=== PATIENT | female | born 1980 | race Caucasian/White ===

== ENCOUNTER → 2022-02-04 12:05 | Outpatient (CLI) | payer BC, SELFPAY ==
--- NOTE | ~2022-02-04 | MM_ITS ---
EXAMINATION: MM scrn maryam implant BI w roslyn HISTORY: Screening mammogram TECHNIQUE: Craniocaudal and mediolateral oblique 3-D tomosynthesis images with implant displacement a nd synthetic 2-D images were generated. Craniocaudal and mediolateral oblique views of the breasts wi thout implant displacement were obtained using full field digital mammography. CAD analysis was submi tted and interpreted. COMPARISON: No prior mammogram is available for comparison at this institution. BREAST PARENCHYMAL COMPOSITION: There are scattered areas of fibroglandular density. FINDINGS: There are bilateral subglandular silicone implants. There are asymmetries in the upper oute r quadrant of the left breast. No mammographic evidence for malignancy in the right breast. IMPRESSION: 1. Left breast asymmetries, upper outer quadrant. 2. Comparison outside mammograms recommended to assess stability. BI-RADS Category 0: Incomplete: Needs additional imaging evaluation. Reviewed, dictated and finalized at location A. MOLOGY PROFESSOR
== END ==
PROVIDERS: Visit Provider Nurse Practitioner
DX: Z12.31 Encounter for screening mammogram for malignant neoplasm of breast (principal); R92.8 Other abnormal and inconclusive findings on diagnostic imaging of breast
CPT/HCPCS: 77063; 77067

== ENCOUNTER → 2022-03-11 08:27 | Outpatient (CLI) | payer BC, SELFPAY ==
--- NOTE | ~2022-03-11 | MMUS_ITS ---
EXAMINATION: MM diag maryam implant LT w roslyn, US breast LT limited HISTORY: Follow-up focal asymmetry of the left breast TECHNIQUE: Additional 3-D tomosynthesis images of the left breast were performed and synthetic 2-D im ages were generated. CAD analysis was submitted and interpreted. High resolution Limited left breast ultrasound was performed. COMPARISON: Comparison to multiple prior studies sequentially, with oldest reviewed study dated 02/04. BREAST PARENCHYMAL COMPOSITION: Breast composed of scattered areas of fibroglandular density FINDINGS: MAMMOGRAPHIC FINDINGS:There is a focal mass in the lateral aspect of the left breast anteriorly, defi nitely seen on CC view only. ULTRASOUND: Limited left breast ultrasound: At 3:00 near the areola there is an oval hypoechoic mass with low lev el internal echoes and internal septation, most likely a complicated cyst. There is enhanced through transmission, parallel orientation and no internal vascularity. IMPRESSION: 1. Probable benign complicated cyst of the left breast at 3:00 corresponding to the mass seen on mamm ography. 2. Recommend 6 month follow-up diagnostic left mammogram and limited ultrasound BI-RADS category 3, probably benign findings. Reviewed, dictated and finalized at location A. IMPRESSION: 1. Probable benign complicated cyst of the left breast at 3:00 corresponding to the mass seen on mammography. 2. Recommend 6 month follow-up diagnostic left mammogram and limited ultrasound BI-RADS category 3, probably benign findings.
== END ==
PROVIDERS: Visit Provider Obstetrics & Gynecology Gynecology
DX: N63.25 Unspecified lump in the left breast, overlapping quadrants (principal); R92.8 Other abnormal and inconclusive findings on diagnostic imaging of breast
CPT/HCPCS: 76642; 77061; 77065; G0279

== ENCOUNTER → 2022-09-12 13:53 | Outpatient (CLI) | payer BC, SELFPAY ==
--- NOTE | ~2022-09-12 | MMUS_ITS ---
EXAMINATION: MM diag maryam implant LT w roslyn, US breast LT limited HISTORY: Follow-up left breast mass TECHNIQUE: Additional 3-D tomosynthesis images of the left breast were performed and synthetic 2-D im ages were generated. CAD analysis was submitted and interpreted. High resolution Limited left breast ultrasound was performed. COMPARISON: Comparison to multiple prior studies sequentially, with oldest reviewed study dated 03/20. BREAST PARENCHYMAL COMPOSITION: Breast composed of scattered areas of fibroglandular density. FINDINGS: MAMMOGRAPHIC FINDINGS: There is a subglandular silicone implant. There are no suspicious masses, calcifications or performance test architect ural distortion in the left breast to suggest malignancy. ULTRASOUND: Limited left breast ultrasound: At 3:00 near the area were there is an oval hypoechoic mass with inte rnal septation measuring 6 x 4 x 5 mm, unchanged from prior examination allowing for differences of t echnique. IMPRESSION: 1. Stable hypoechoic left breast mass at 3:00 near the areola measuring 6 mm, most likely benign cyst or intramammary lymph node. 2. Six-month follow-up diagnostic bilateral mammogram and Limited left breast ultrasound recommended. BI-RADS category 3, probably benign findings. Reviewed, dictated and finalized at location A. IMPRESSION: 1. Stable hypoechoic left breast mass at 3:00 near the areola measuring 6 mm, m ost likely benign cyst or intramammary lymph node. 2. Six-month follow-up diagnostic bilateral mammogram and Limited left breast u ltrasound recommended. BI-RADS category 3, probably benign findings.
== END ==
PROVIDERS: PCP Physician Assistant; Visit Provider Obstetrics & Gynecology Gynecology
DX: N63.20 Unspecified lump in the left breast, unspecified quadrant (principal)
CPT/HCPCS: 76642; 77061; 77065; G0279

== ENCOUNTER 2022-09-28 09:03 | Outpatient (CLI) | payer BC, SELFPAY ==
[2022-09-29 11:07] LABS: Kit Draw Collected
== END 2022-09-28 09:04 | disposition home or self-care (01) ==
LOC: ANHGOSHLAB 09:07
PROVIDERS: PCP Physician Assistant; Visit Provider Physician Assistant
DX: E03.9 Hypothyroidism, unspecified (principal); Z13.220 Encounter for screening for lipoid disorders; Z13.1 Encounter for screening for diabetes mellitus; Z79.899 Other long term (current) drug therapy; R20.2 Paresthesia of skin; Z53.8 Procedure and treatment not carried out for other reasons
CPT/HCPCS: 99199; 36415

== ENCOUNTER → 2023-03-20 09:21 | Outpatient (CLI) | payer BC, SELFPAY ==
--- NOTE | ~2023-03-20 | MMUS_ITS ---
EXAMINATION: MM diag maryam implant BI w roslyn, US breast LT limited HISTORY: Six-month follow-up of probably benign stable hypoechoic left breast 6 mm mass at 3:00 near the areola TECHNIQUE: Bilateral full Field ML, MLO and CC and left spot 3-D tomosynthesis images were performed and synthetic 2-D images were generated. CAD analysis was submitted and interpreted. High resolution targeted left breast 3:00 breast ultrasound was performed. COMPARISON: 09/12/2022 diagnostic left mammogram and limited left breast ultrasound March 11, 2022 diagnostic left mammogram and limited left breast ultrasound 02/04/2022 bilateral implant screening mammogram BREAST PARENCHYMAL COMPOSITION: There are scattered areas of fibroglandular density. FINDINGS: MAMMOGRAPHIC FINDINGS: No suspicious mass or architectural distortion, malignant calcification, skin thickening or retractio n or significant new or developing density is detected. ULTRASOUND: The 3:00 periareolar mass is irregular in outline, measuring up to 4 x 4.6 x 8.1 mm, compared to the approximate 4 x 5.9 x 4.6 mm dimension on 09/12/2022. IMPRESSION: 1. Irregular mildly enlarged hypoechoic mass at left 3:00 periareolar area 2. Ultrasound-guided biopsy of left breast 3:00 periareolar lesion is recommended due to the irregula r margins and mildly increased size BI-RADS category 4, suspicious findings. Dr. Mckinney telephoned the report and ultrasound-guided biopsy recommendation of the left breast 3:00 pe riareolar lesion on 03/20/2023 at 1052 hours to voicemail at [phone]. Reviewed, dictated and finalized at location A. IMPRESSION: 1. Irregular mildly enlarged hypoechoic mass at left 3:00 periareolar area 2. Ultrasound-guided biopsy of left breast 3:00 periareolar lesion is recommend ed due to the irregular margins and mildly increased size BI-RADS category 4, suspicious findings. Dr. Mckinney telephoned the report and ultrasound-guided biopsy recommendation of t he left breast 3:00 periareolar lesion on 03/20/2023 at 1052 hours to voicemail at [phone]. IMPRESSION: 1. Irregular mildly enlarged hypoechoic mass at left 3:00 periareolar area 2. Ultrasound-guided biopsy of left breast 3:00 periareolar lesion is recommend ed due to the irregular margins and mildly increased size BI-RADS category 4, suspicious findings. Dr. Mckinney telephoned the report and ultrasound-guided biopsy recommendation of t he left breast 3:00 periareolar lesion on 03/20/2023 at 1052 hours to voicemail at [phone].
== END ==
PROVIDERS: PCP Physician Assistant; Visit Provider Obstetrics & Gynecology Gynecology
DX: N63.20 Unspecified lump in the left breast, unspecified quadrant (principal); R92.8 Other abnormal and inconclusive findings on diagnostic imaging of breast
CPT/HCPCS: 76642; 77062; 77066; G0279

== ENCOUNTER 2024-05-28 12:45 | Outpatient (CLI) | payer BC, SELFPAY ==
--- NOTE | ~2024-05-28 | XR_ITS ---
EXAMINATION: XR shoulder LT min 2V DATE: 05/28/2024 12:55 INDICATION: Left shoulder pain. TECHNIQUE: 4 views of left shoulder were obtained. COMPARISON: Left shoulder radiographs 05/31/2019 FINDINGS: Bone alignment is normal. No fracture. Joint spaces are normal. IMPRESSION: 1. Normal left shoulder. Reviewed, dictated and finalized at location A. IMPRESSION: 1. Normal left shoulder.
--- NOTE | ~2024-05-28 | XR_ITS ---
EXAMINATION: XR shoulder RT min 2V DATE: 05/28/2024 12:53 INDICATION: Right shoulder pain. TECHNIQUE: 4 views of right shoulder were obtained. COMPARISON: None. FINDINGS: Bone alignment is normal. No fracture. Joint spaces are normal. IMPRESSION: 1. Normal right shoulder. Reviewed, dictated and finalized at location A. IMPRESSION: 1. Normal right shoulder.
== END 2024-05-28 12:46 ==
PROVIDERS: PCP Physician Assistant; Visit Provider Physician Assistant
DX: M25.511 Pain in right shoulder (principal); M25.512 Pain in left shoulder
CPT/HCPCS: 73030

== ENCOUNTER 2025-07-11 06:30 | Emergency (ER) | payer BC, SELFPAY ==
--- NOTE | ~2025-07-11 | US_ITS ---
EXAMINATION: US abdomen limited DATE: 07/11/2025 08:31 INDICATION: Right upper quadrant abdominal pain and epigastric pain TECHNIQUE: Multiple grayscale and Doppler ultrasound images of the abdomen were obtained. COMPARISON: None FINDINGS: The pancreatic head and body are normal in appearance. The pancreatic tail is not visualized. Visual ized proximal to mid abdominal aorta and the proximal inferior vena cava are normal. Liver has normal echogenicity and contour, with a smooth surface. No liver lesion identified. No intrahepatic biliary duct dilation suspected. Portal venous flow was seen in the hepatopetal, normal direction and has no rmal Doppler waveform. There are multiple echogenic and shadowing gallstones in the normal-appearing gallbladder which is normal in size with no wall thickening or pericholecystic fluid to suggest acute cholecystitis. The common bile duct measures 6 mm, which is at the upper limits of normal. Distal co mmon bile duct is not visualized. Right kidney measures 10.2 x 4.6 x 5.3 cm with normal contour and p arenchymal echogenicity and no hydronephrosis. Sonographic [place] sign was reported as negative by [facility] bowling ball patcher. IMPRESSION: 1. Cholelithiasis with borderline dilated common bile duct but no intrahepatic biliary ductal dilatio n or findings of acute cholecystitis. Correlate with liver function tests and if clinically indicated could consider MRCP for further evaluation. Reviewed, dictated and finalized at location A. IMPRESSION: 1. Cholelithiasis with borderline dilated common bile duct but no intrahepatic biliary ductal dilation or findings of acute cholecystitis. Correlate with live r function tests and if clinically indicated could consider MRCP for further ev aluation.
--- NOTE | ~2025-07-11 | XR_ITS ---
EXAMINATION: XR chest 2V 07/11/2025 07:03 INDICATION: Chest pain PROCEDURE: 2 view chest COMPARISON: 03/24/2016 FINDINGS: The lungs are clear. The cardiomediastinal silhouette is within normal limits. There are no pleural effusions. There is no pneumothorax suspected. IMPRESSION: 1: NO ACUTE CARDIOPULMONARY DISEASE. Reviewed, dictated and finalized at location A.
--- OUTSIDE RECORDS SUMMARY | 2025-07-11 06:32 | XMS_ITS | Clinical Summary ---
Author Organization [facility] Address [address] [place] [address] Phone Care Team Providers Care Mandarin Chinese Teacher Name Role Phone Unavailable Primary Care Provider Unavailabl e Allergies No known active allergies Medications No known medications Encounters Date Type Department Care Team Description 07/01/2025 External Device Data [facility] ABSTRACTION Provider, Abstract 06/11/2025 External Device Data [facility] ABSTRACTION Provider, Abstract 06/10/2025 External Device Data [facility] ABSTRACTION Provider, Abstract 05/13/2025 External Device Data [facility] ABSTRACTION Provider, Abstract 04/29/2025 External Device Data [facility] ABSTRACTION Provider, Abstract 04/17/2025 External Device Data [facility] ABSTRACTION Provider, Abstract 04/16/2025 External Device Data [facility] ABSTRACTION Provider, Abstract 04/15/2025 External Device Data [facility] ABSTRACTION Provider, Abstract from Last 3 Months Social History Tobacco Use Types Packs/Day Years Used Date Smoking Tobacco: Never Assessed Comments No Sex and Gender Information Value Date Recorded Sex Assigned at Not on file Legal Sex Female 10:22 AM CDT Gender Identity Not on file Sexual Orientation Not on file Last Filed Vital Signs Vital Sign Reading Time Taken Comments Blood Pressure - - Pulse - - Temperature - - Respiratory Rate - - Oxygen Saturation - - Inhaled Oxygen Concentration - - Weight 72.6 kg (160 lb) 04/14/2023 8:00 AM CDT Height 162.6 cm (5' 4) 04/14/2023 8:00 AM CDT Body Mass Index 27.46 04/14/2023 8:00 AM CDT Plan of Treatment Health Maintenance Due Date Last Done Comments Pre-Diabetes and Diabetes Screening 1979 HPV VACCINES (1 - 3-dose series) 1994 HEPATITIS B VACCINES (1 of 3 - 19+ 3-dose series) 1998 HPV/Cotest (21-29) 2000 CERVICAL CANCER SCREENING 2009 HPV/Cotest (30-65) 2009 PAP SMEAR 2009 COLORECTAL SCREENING 2024 Colorectal Cancer Screening 2024 FIT-DNA Q 3 years 2024 FIT/FOBT Q 1 year 2024 Flex Sig/CT Colonography Q 5 years 2024 INFLUENZA VACCINE (#1) 2025 09/07/2015 BREAST CANCER SCREENING 04/08/2026 04/08/20 25, 03/22/2024, 09/12/2022 DTAP/TDAP/TD VACCINES (2 - T d or Tdap) 08/09/2033 08/09/2023 Procedures Procedure Name Priority Date/Time Associated Diagnosis Comments MAMMO 3D TRELL SCREEN IMPL BILAT W OR WO CAD Routine 04/08/2025 9:00 AM CDT Visit for screening mammogram from Last 3 Months or Most Recently Relevant to Health Maintenance Results * MAMMO 3D TRELL SCREEN IMPL BILAT W OR WO CAD (04/08/2025 9:00 AM CDT) Anatomical Region Laterality Modality Breast Bilateral Mammography 04/08/2025 9:00 AM CDT Impressions 04/08/2025 9:19 AM CDT IMPRESSION: No suspicious findings to suggest malignancy in either breast. Annual mammography is recommended. OVERALL FINAL ASSESSMENT: BI-RADS CATEGORY 2: Benign findings DICTATION LOCATION: [facility] 04/08/2025 9:19 AM CDT BILATERAL SCREENING DIGITAL IMPLANT MAMMOGRAM WITH 3D TOMOSYNTHESIS AND CAD DATE: 04/08/2025 9:00 AM HISTORY: Routine screening. TECHNIQUE: Full-field digital standard and implant displaced craniocaudal and mediolateral oblique projections of both breasts were obtained. Low-dose full-field digital breast tomosynthesis examination was performed with 2D and 3D acquisitions. Examination is read in conjunction with computer aided detection. COMPARISON: 03/22/2024 and older BREAST COMPOSITION: There are scattered areas of fibroglandular density. FINDINGS: There are bilateral subglandular silicone implants, which limit mammographic sensitivity. No suspicious mass, suspicious microcalcifications, or architectural distortion is identified in either breast. Computer aided detection was used in the interpretation of this examination. us Mammography Self Referral Provider MD DONALDO MARTIN Final Result from Last 3 Months or Most Recently Relevant to Health Maintenance Insurance BS BLUE ACCESS/TRUE BLUE PPO
--- OUTSIDE RECORDS SUMMARY | 2025-07-11 06:32 | XMS_ITS | Clinical Summary ---
Author Organization [facility] Address [address] [place] [address] Care Team Providers Care Net Repairer Name Role Phone Erich Ocasio DO Primary Care Provider Source Comments [facility],non-owned Affiliates and Associated Physician Practices is amultiple site organization consisting of ambulatory clinics and hospital sitesin [place], [place], [place] and [place]. This disclosure is being madepursuant to the Care Everywhere program and may not contain all information available regarding this patient. Last updated 18.[facility] Allergies No known active allergies Medications * Be aware that medications may not be up to date on this document. Alwaysverify current medications with the patient. buPROPion SR 12hr (WELLBUTRIN SR) 100 MG tablet Take 100 mg by mouth 2 times daily Active Thyroid (NATURE-THROID PO) Active fluticasone propionate (FLONASE) 50 MCG/ACT nasal sprayIndication s:Bilateral acute serous otitis media, recurrence not specified,Dysfu nction of both eustachian tubes Shiro 2 sprays into each nostril once daily X 7 days, then decrease to 1 spray in each nostril QD 1 bottles 05/22/2018 Active Active Problems Problem Noted Date Diagnosed Date NEGATIVE PAST MEDICAL HISTORY - SEE PROBLEM LIST Social History Tobacco Use Types Packs/Day Years Used Date Smoking Tobacco: Never Smokeless Tobacco: Never Comments No Sex and Gender Information Value Date Recorded Sex Assigned at Not on file Legal Sex Female 1:53 PM TERRAZZO GRINDER Gender Identity Not on file Sexual Orientation Not on file Last Filed Vital Signs Vital Sign Reading Time Taken Comments Blood Pressure 114/62 05/22/2018 12:40 PM CDT Pulse 73 05/22/2018 12:40 PM CDT Temperature 37 C (98.6 F) 05/22/2018 12:40 PM CDT Respiratory Rate 16 05/22/2018 12:40 PM CDT Oxygen Saturation 99% 05/22/2018 12:40 PM CDT Inhaled Oxygen Concentration - - Weight 65.8 kg (145 lb) 05/22/2018 12:40 PM CDT Height 162.6 cm (5' 4) 05/22/2018 12:40 PM CDT Body Mass Index 24.89 05/22/2018 12:40 PM CDT Plan of Treatment Health Maintenance Due Date Last Done Comments COLOGUARD (AGES 45-75) - COL ON CA SCREENING 1979 COLON MONITORING 1979 COLONOSCOPY - COLON CA SCREENING 1979 CT COLONOGRAPHY - COLON CA SCREENING 1979 Colorectal Cancer Screening 1979 FIT - COLON CA SCREENING 1979 FLEX SIG - COLON CA SCREENING 1979 LIPID TESTING 1979 MAMMOGRAM 1979 HIV SCREENING 1994 HEPATITIS C SCREENING 09/29/1997 DTAP/TDAP/TD VACCINES (1 - Tdap) 1998 HEPATITIS B VACCINE (1 of 3 - 19+ 3-dose series) 1998 HPV VACCINE (1 - 3-dose SCDM series) 2006 COVID-19 VACCINE (1 - 2023-2 5 season) 2024 DEPRESSION SCREENING 11/27/2024 INFLUENZA VACCINE (#1) 2025 ZOSTER VACCINE (1 of 2) 2029 HIB VACCINE Aged Out No longer eligi ble based on patient's age to complete this topic MENINGOCOCCAL (Group B) VACC INE SHARED DECISION-MAKING Aged Out No longer eligibl e based on patient's age to complete this topic MENINGOCOCCAL GROUPS A/C/Y/W VACCINE Aged Out No longer eligible b ased on patient's age to complete this topic PNEUMOCOCCAL VACCINE Aged Out No long er eligible based on patient's age to complete this topic Insurance [facility] Care Teams Net Repairer Relationship Specialty Start Date End Date Erich Ocasio DO [address] [place] [id number] PCP - General Internal Medicine 10/10/17
--- OUTSIDE RECORDS SUMMARY | 2025-07-11 06:32 | XMS_ITS | Clinical Summary ---
Author Organization [facility] Address [address] [place] [address] Phone Care Team Providers Care Bushing And Broach Operator Name Role Phone Jesse Ramey MD Unavailable [phone] Linda Barrientos MD Unavailable [phone] Eufemia Garcia Primary Care Pr ovider Allergies No known active allergies Medications levothyroxine (SYNTHROID, LEVOTHROID) 50 mcg tablet TAKE 1 TABLET BY MOUTH EVERY DAY 90 0 6 Active Additional Information Patient not taking.Reported on 10/18/2024 levothyroxine sodium (TIROSINT) 50 mcg capsule take 1 capsule by oral route every day 90 3 5 Active Additional Information Patient not taking.Reported on 10/18/2024 buPROPion XL (WELLBUTRIN XL) 300 mg 24 hr tablet Take 1 tablet (300 mg total) by mouth daily Active Synthroid 100 mcg tablet Take 1 tablet (100 mcg total) by mouth 3 Active cholecalcifero l (VITAMIN D-3) 2000 unit capsule daily 7 Active fluticasone propionate (FLONASE) 50 mcg/actuation nasal spray Administer 2 sprays into affected nostril(s) daily 8 Active loratadine (CLARITIN) 10 mg tablet daily 7 Active Wegovy 2.4 mg/0.75 mL auto-injector INJECT 2.4 MG SUBCUTANEOUSLY WEEKLY 4 Active Active Problems Problem Noted Date Diagnosed Date Weight loss 12/25/2022 Paresthesia of upper limb 08/22/2022 Lateral epicondylitis of right elbow 04/01/2022 Depressive disorder 03/31/2022 Thyroid activity decreased 02/13/2017 Seasonal allergic rhinitis 02/13/2017 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 Hypothyroidism 07/16/2015 Overview (03/02/2017): Hypothyroidism Immunizations Immunization Administration Dates Next Due Influenza, Quadrivalent, Spl it, Preservative Free, Intramuscular 09/07/2015 Surgical History Surgery Date Site/Laterality Comments SECTION Section - (Added by TW Conv) LASIK Corneal LASIK Bilateral - (Added by TW Conv) Family History Medical History Relation Name Comments Other Father 2 Alive and well; Hyperlipidemia Mother 2 Hyperlipidemi a; Hypertension Mother 2 Hypertension - (Added by TW Conv) Other Mother 2 Alive and well; Cancer Other 1 Cancer - Relati on: Grandmother (Added by TW Conv) Heart disease Other 1 Heart Disease - Relation: Grandmother (Added by TW Conv) Hypertension Other 1 Hypertension - Relation: Grandmother (Added by TW Conv) Thyroid disease Other 1 Thyroid Diso rder - Relation: Grandmother (Added by TW Conv) Thyroid disease Other 2 Thyroid Diso rder - Relation: Aunt (Added by TW Conv) Relation Name Status Comments Father 1 Alive Father 2 Mother 1 Alive Mother 2 Other 1 Other 2 Social History Tobacco Use Types Packs/Day Years Used Date Smoking Tobacco: Former Tobacco Cessation:Counseling Given: Not Answered Alcohol Use Standard Drinks/Week Comments Yes 0 (1 standard drink = 0.6 oz pur e alcohol) Comments Unknown Sex and Gender Information Value Date Recorded Sex Assigned at Not on file Legal Sex Female 9:12 PM SINTER MACHINE OPERATOR Gender Identity Not on file Sexual Orientation Not on file Obstetrics History Last Filed Vital Signs Vital Sign Reading Time Taken Comments Blood Pressure 104/70 10/18/2024 10:29 AM SINTER MACHINE OPERATOR Pulse 77 10/18/2024 10:29 AM SINTER MACHINE OPERATOR Temperature 36.9 C (98.4 F) 10/18/2024 10:29 AM SINTER MACHINE OPERATOR Respiratory Rate 18 10/18/2024 10:29 AM SINTER MACHINE OPERATOR Oxygen Saturation 99% 10/18/2024 10:29 AM SINTER MACHINE OPERATOR Inhaled Oxygen Concentration - - Weight 69.4 kg (153 lb) 10/18/2024 10:29 AM SINTER MACHINE OPERATOR Height 162.6 cm (5' 4) 10/18/2024 10:29 AM SINTER MACHINE OPERATOR Body Mass Index 26.26 10/18/2024 10:29 AM SINTER MACHINE OPERATOR Plan of Treatment Health Maintenance Due Date Last Done Comments Cervical Cancer Screening 1979 Colon Cancer Screening-Colonoscopy 1979 Depression Screening 1979 Hepatitis C Screening 1979 Hepatitis B Screening 1997 Regular Well Visit/Exam 18-64 1997 HPV Vaccines (1 - 3-dose SCD M series) 2006 Breast Cancer Screening-Mammogram 03/22/2025 03/22/2024, 03/22/2024 Influenza Vaccine (#1) 2025 09/07/2015 DTaP/Tdap/Td Vaccine (2 - Td or Tdap) 08/09/2033 08/09/2023 Pneumococcal vaccine <65 Aged Out No longer eligible based on patient's age to complete this topic Insurance [employer] [place] Care Teams Bushing And Broach Operator Relationship Specialty Start Date End Date Eufemia Garcia PA [address] [place] [address] PCP - General Physician Pasteurizing Machine Operator 12/17/23 Jesse Ramey MD [address] [facility] [address] [address] 08/05/22 Linda Barrientos MD [address] [place] [address] Referring Physician Gynecology 03/21/23
--- NOTE | 2025-07-11 06:36 | ECG_ITS ---
Test Date: 2025-07-11 06:39:03 Measurements Intervals Anita Rate: 72 P: 32 IA: 135 QRS: -6 QRSD: 101 T: -15 QT: 357 QTc: 393 Interpretive Statements SINUS RHYTHM WITH OCCASIONAL SUPRAVENTRICULAR PREMATURE COMPLEXES INCOMPLETE RIGHT BUNDLE BRANCH BLOCK BORDERLINE ST-T WAVE ABNORMALITY- ANTEROLAT/INF LEADS BASELINE ARTIFACT- I, II, AVR, V5-V6 BORDERLINE ECG No previous ECG available for comparison Electronically Signed On 07-11-2025 08:11:19 CDT by Angel Larios D.O.
[2025-07-11 06:38] VITALS: BP 131/84; PULSE 81; RESP 19; TEMP 37; O2SAT 98
[2025-07-11 06:48] VITALS: O2SAT 98
[2025-07-11 06:53] LABS: Hematocrit 38.9 % (37.0-47.0); Hemoglobin 12.5 g/dL (12.0-15.0); Immature Granulocyte Percent A 0.3 % (0-0.5); Lymphocytes Absolute Auto 2.44 K/mm3 (0.9-3.2); Mean Corpuscular HGB Conc 32.1 g/dl (32-36); Mean Corpuscular Hemoglobin 30.0 pg (26-34); Mean Corpuscular Volume 93.3 fl (80-100); Nucleated Red Blood Cells Absolute Auto 0.000 K/mm3 (0.0-0.012); Nucleated Red Blood Cells Perc 0.0 % (0.0-0.2); Platelet Count Result 310 k/mm3 (150-375); Red Blood Count 4.17 M/mm3 (4.2-5.4); White Blood Count 9.1 K/mm3 (4.5-10.0)
[2025-07-11 07:05] LABS: Alanine Aminotransferase 28 U/L (6-35); Albumin Level 4.4 g/dL (3.5-5.1); Alkaline Phosphatase 50 U/L (38-126); Anion Gap 8 mmol/L (4-12); Aspartate Amino Transferase 29 U/L (14-36); Bilirubin,Total 0.5 mg/dL (0.2-1.3); Blood Urea Nitrogen 16 mg/dL (7-17); Calcium 9.8 mg/dL (8.4-10.2); Carbon Dioxide 21 mmol/L (22-30); Chloride 106 mmol/L (98-107); Estimated CRCL calculation 74 ml/min; Estimated Glomerular Filt Rate > 60; Glucose 100 mg/dL (65-110); Lipase 110 U/L (23-300); Potassium 3.9 mmol/L (3.4-5.0); Sodium 135 mmol/L (137-145); Total Protein 7.3 g/dL (6.3-8.2)
[2025-07-11 07:11] LABS: INR 1.0; Prothrombin Time 13.6 Seconds (11.1-14.7)
[2025-07-11 07:12] LABS: Partial Thromboplastin Time 30.4 Seconds (22.3-36.8)
[2025-07-11 07:16] LABS: Troponin I < 0.012 ng/mL (0.000-0.034)
--- OUTSIDE RECORDS SUMMARY | 2025-07-11 07:27 | XMS_ITS | Clinical Summary ---
Author Organization [facility] Address [address] [place] [address] Care Team Providers Care Marketing Account Executive Name Role Phone Erich Ocasio DO Primary Care Provider Source Comments [facility],non-owned Affiliates and Associated Physician Practices is amultiple site organization consisting of ambulatory clinics and hospital sitesin [place], [place], [place] and [place]. This disclosure is being madepursuant to the Care Everywhere program and may not contain all information available regarding this patient. Last updated 18.[facility] Allergies No known active allergies Medications * [...] not specified,Dysfu nction of both eustachian tubes [place] 2 sprays into each nostril once daily [...] on file Legal Sex Female 1:53 PM PIPE FITTER APPRENTICE Gender Identity Not on file Sexual Orientation [...] patient's age to complete this topic Insurance [employer] Care Teams Marketing Account Executive Relationship Specialty Start Date End Date Erich Ocasio DO [address] [place] [id number] PCP - General Internal Medicine 10/10/17
--- OUTSIDE RECORDS SUMMARY | 2025-07-11 07:27 | XMS_ITS | Clinical Summary ---
Author Organization [facility] Address [address] [place] [address] Phone Care Team Providers Care Hand Mounter Name Role Phone Jesse Ramey MD Unavailable [phone] Linda Barrientos MD Unavailable [phone] Eufemia Garcia Primary Care Pr ovider Allergies [...] on file Legal Sex Female 9:12 PM CUSHION MAT MAKER Gender Identity Not on file Sexual Orientation Not on file Obstetrics History Last Filed Vital Signs Vital Sign Reading Time Taken Comments Blood Pressure 104/70 10/18/2024 10:29 AM CUSHION MAT MAKER Pulse 77 10/18/2024 10:29 AM CUSHION MAT MAKER Temperature 36.9 C (98.4 F) 10/18/2024 10:29 AM CUSHION MAT MAKER Respiratory Rate 18 10/18/2024 10:29 AM CUSHION MAT MAKER Oxygen Saturation 99% 10/18/2024 10:29 AM CUSHION MAT MAKER Inhaled Oxygen Concentration - - Weight 69.4 kg (153 lb) 10/18/2024 10:29 AM CUSHION MAT MAKER Height 162.6 cm (5' 4) 10/18/2024 10:29 AM CUSHION MAT MAKER Body Mass Index 26.26 10/18/2024 10:29 AM CUSHION MAT MAKER Plan of Treatment Health Maintenance Due Date [...] patient's age to complete this topic Insurance [employer] [place] [employer] [place] Care Teams Hand Mounter Relationship Specialty Start Date End Date Eufemia Garcia PA [address] [place] [address] PCP - General Physician Bargain Table Clerk 12/17/23 Jesse Ramey MD [address] [facility] [address], [place] [address] 08/05/22 Linda Barrientos MD [address] [place] [address] Referring Physician Gynecology 03/21/23
[2025-07-11 07:51] LABS: NT Pro B Type Natriuretic Pept 24 pg/mL (19.9-100)
[2025-07-11 08:00] VITALS: BP 131/84; PULSE 79; RESP 18; O2SAT 99
[2025-07-11] MEDS: MAG HYDROX/AL HYDROX/SIMETH 30 ML UDC PO (08:11)
[2025-07-11] MEDS: FAMOTIDINE 20 MG/2 ML VIAL IV PUSH (08:11)
[2025-07-11] MEDS: HYDROmorphone HCL INJ (*CRX) 1 MG/ML SYR 0.5 MG IV PUSH (08:12)
[2025-07-11] MEDS: ONDANSETRON INJ 4 MG/2 ML VIAL IV PUSH (08:12)
--- NOTE | 2025-07-11 08:15 | ED.GENADULT ---
HPI - General Adult General Chief complaint: Chest Pain Stated complaint: chest pain Time Seen by Provider: 07/11/25 06:59 History of Present Illness HPI narrative: This is a 44-year-old female presenting with intermittent epigastric/chest pain over the last several weeks. Patient says the pain is worse at night when she lays flat. She describes as a pressure in the epigastric area that then radiates up into her chest. She has attempted to take intermittent Pepcid Tums and warm water. She typically ends up having did go sleep on the sofa where she can sit upright which improves the pain. She does not have a history of GERD or gastritis. She does not relate the pain to food. She has no history of gallbladder issues. She denies fevers chills shortness of breath nausea vomiting or diarrhea. Pain is not exertional or associated with diaphoresis. Related Data Allergies Allergy/AdvReac Type Severity Reaction Status Date / Time No Known Allergies Allergy Verified 07/11/25 08:15 [facility] Family History Family History (Updated 05/31/19 @ 10:12 by DOCTOR UNKNOWN) Mother Family history of arthritis Other Family history of cardiovascular disease Family history of lung cancer Social History Social History Smoking status: Former smoker Smoking end date: 11/27/13 Alcohol intake: current Exam Narrative: APPEARANCE: No apparent distress. Head: atraumatic. EYES: EOMI, NOSE: Atraumatic NECK: Trachea midline RESPIRATORY: No increased rate of breathing clear to auscultation CARDIOVASCULAR: RRR, no peripheral edema ABDOMINAL: Mild discomfort in the epigastric area without true pain guarding rebound MUSCULOSKELETAl: No obvious deformities NEURO: Alert. Moving 4/4 extremities SKIN:: Warm, dry. Normal color PSYCHIATRIC: Normal affect Course Vital Signs Vital signs: Vital Signs Temperature 98.6 F 07/11/25 06:38 Pulse Rate 81 07/11/25 06:38 Respiratory Rate 19 07/11/25 06:38 Blood Pressure 131/84 07/11/25 06:38 Pulse Oximetry 98 07/11/25 06:38 Oxygen Delivery Room Air 07/11/25 06:38 Temperature 98.6 F 07/11/25 06:38 Pulse Rate 72 07/11/25 09:30 Respiratory Rate 16 07/11/25 09:30 Blood Pressure 116/78 07/11/25 09:30 Pulse Oximetry 97 07/11/25 09:30 Oxygen Delivery Room Air 07/11/25 06:48 Medical Decision Making [facility] Narrative Medical decision making narrative: -Course: 44-year-old female presenting for epigastric discomfort. Laboratory studies within normal limits. Abdominal exam shows some epigastric discomfort but no real significant pain in the right upper quadrant. Right upper quadrant ultrasound showed cholelithiasis without evidence of acute cholecystitis. Results were discussed with the patient. She will be treated with Pepcid and Maalox for suspected GERD. She will also be given follow-up with general surgery for for evaluation of her gallbladder although I think that is less likely cause of her discomfort. Patient discharged with return precautions. Patient's chest pain workup was negative. -DDX includes but is not limited to: -Dx tests considered but not ordered: CT abdomen pelvis: Young age, benign abdominal exam, most likely diagnosis GERD Vital Signs Vital Signs: Vital Signs Temperature 98.6 F 07/11/25 06:38 Pulse Rate 81 07/11/25 06:38 Respiratory Rate 19 07/11/25 06:38 Blood Pressure 131/84 07/11/25 06:38 Pulse Oximetry 98 07/11/25 06:38 Oxygen Delivery Room Air 07/11/25 06:38 Temperature 98.6 F 07/11/25 06:38 Pulse Rate 72 07/11/25 09:30 Respiratory Rate 16 07/11/25 09:30 Blood Pressure 116/78 07/11/25 09:30 Pulse Oximetry 97 07/11/25 09:30 Oxygen Delivery Room Air 07/11/25 06:48 Lab Data 07/11/25 06:47 07/11/25 06:47 Labs: Lab Results 07/11/25 07/11/25 Range/Units 06:47 09:45 WBC 9.1 (4.5-10.0) K/mm3 RBC 4.17 L (4.2-5.4) M/mm3 Hgb 12.5 (12.0-15.0) g/dL Hct 38.9 (37.0-47.0) % MCV 93.3 (80-100) fl MCH 30.0 (26-34) pg MCHC 32.1 (32-36) g/dl RDW 13.2 (11.5-14.5) % Plt Count 310 (150-375) k/mm3 MPV 9.9 (7.4-10.4) fl Immature Gran % (Auto) 0.3 (0-0.5) % Neut % (Auto) 64.1 (45.5-73.1) % Lymph % (Auto) 26.8 (18.3-44.2) % Teller % (Auto) 5.4 (2.6-8.5) % Eos % (Auto) 2.8 (0-4.4) % Baso % (Auto) 0.6 (0.2-1.2) % Lymph # (Auto) 2.44 (0.9-3.2) K/mm3 Teller # (Auto) 0.5 (0.1-0.6) K/mm3 Eos # (Auto) 0.3 (0-0.3) K/mm3 Baso # (Auto) 0.1 (0.0-0.1) K/mm3 Abs Immat Gran (auto) 0.03 (0.00-0.031) K/mm3 Absolute Neuts (auto) 5.8 (1.3-6.7) K/mm3 Absolute Nucleated RBC 0.000 (0.0-0.012) K/mm3 Nucleated RBC % 0.0 (0.0-0.2) % PT 13.6 (11.1-14.7) Seconds INR 1.0 APTT 30.4 (22.3-36.8) Seconds D-Dimer < 0.27 (<0.48) ug/mL Sodium 135 L (137-145) mmol/L Potassium 3.9 (3.4-5.0) mmol/L Chloride 106 (98-107) mmol/L Carbon Dioxide 21 L (22-30) mmol/L Anion Gap 8 (4-12) mmol/L BUN 16 (7-17) mg/dL Creatinine 0.82 (0.7-1.0) mg/dL Estim Creat Clear Calc 74 ml/min Estimated GFR > 60 (59 - ) Glucose 100 (65-110) mg/dL Calcium 9.8 (8.4-10.2) mg/dL Total Bilirubin 0.5 (0.2-1.3) mg/dL AST 29 (14-36) U/L ALT 28 (6-35) U/L Alkaline Phosphatase 50 (38-126) U/L Troponin I < 0.012 < 0.012 (0.000-0.034) ng/mL NT-Pro-B Natriuret Pep 24 (19.9-100) pg/mL Total Protein 7.3 (6.3-8.2) g/dL Albumin 4.4 (3.5-5.1) g/dL Lipase 110 (23-300) U/L Discharge Plan Discharge Clinical Impression: Chest pain due to GERD, Cholelithiasis Patient Disposition: Home Condition: Stable Instructions: Antibiotic Form, Diet for Stomach Ulcers and Gastritis (ED), GERD (Gastroesophageal Reflux Disease) (DC) Additional Instructions: You were seen in the emergency department for epigastric pain. This is likely due to GERD. Please take Pepcid twice a day for 6 weeks. Please use Maalox or Pepto-Bismol as needed for acute pain. You can also use Tylenol for pain. Please follow-up with your primary care physician. Your right upper quadrant ultrasound showed cholelithiasis. Please follow-up with the general surgeon listed below for further evaluation. Patient Language: Arabic Prescriptions: New famotidine [Pepcid] 20 mg tablet 20 mg PO BID 42 Days Qty: 84 0RF Follow-up/Referrals: Radha,AGA Fall [Primary Care Provider] - Heriberto Yang DO [Physician] - 2 Weeks (Cholelithiasis )
[2025-07-11 09:30] VITALS: BP 116/78; PULSE 72; RESP 16; O2SAT 97
--- NOTE | 2025-07-11 09:52 | ECG_ITS ---
Test Date: 2025-07-11 09:54:49 Measurements Intervals [place] Rate: 62 P: 36 MD: 142 QRS: -5 QRSD: 97 T: -11 QT: 394 QTc: 401 Interpretive Statements SINUS RHYTHM WITH OCCASIONAL SUPRAVENTRICULAR PREMATURE COMPLEXES INCOMPLETE RIGHT BUNDLE BRANCH BLOCK BORDERLINE T WAVE ABNORMALITY- ANT/INF LEADS BASELINE ARTIFACT- I, II, AVR, AVL BORDERLINE ECG Compared to ECG 07/11/2025 06:39:03 No significant changes Electronically Signed On 07-11-2025 10:06:53 CDT by Angel Larios D.O.
[2025-07-11 10:15] LABS: Troponin I < 0.012 ng/mL (0.000-0.034)
== END 2025-07-11 11:21 | disposition home or self-care (01) ==
PROVIDERS: Student in an Organized Health Care Education/Training Program; Emergency Provider Emergency Medicine; PCP Physician Assistant
DX: K80.20 Calculus of gallbladder without cholecystitis without obstruction (principal); K21.9 Gastro-esophageal reflux disease without esophagitis; Z87.891 Personal history of nicotine dependence; I49.1 Atrial premature depolarization; I45.10 Unspecified right bundle-branch block; R94.31 Abnormal electrocardiogram [ECG] [EKG]
CPT/HCPCS: 36415; 71046; 76705; 80053; 83690; 83880; 84484; 85025; 85380; 85610; 85730; 93005; 96374; 96375; 99284; A9270; J1171; J2405

== ENCOUNTER 2025-08-30 10:04 | Outpatient (CLI) | payer BC, SELFPAY ==
--- NOTE | ~2025-08-30 | MR_ITS ---
EXAMINATION: MR MRCP wo/w con/w 3D wo ind DATE: 08/30/2025 11:56 INDICATION: Right abdominal crampy pain. TECHNIQUE: Magnetic resonance imaging (MRI) of the abdomen was performed without and with 15 mL MultiHance intravenous contrast. Sequences included coronal T2- weighted FS FSE, coronal T2-weighted FSE, axial T1-weighted LAVA, coronal FS FIESTA, axial dual-echo T1-weighted SPGR, coronal lava-FLEX, sagittal T2- weighted FSE, axial T2-weighted FSE, and axial DWI. Thick-slab T2-weighted FSE images were obtained for magnetic resonance cholangiopancreatography (MRCP). Maximum intensity projection 3-D reconstructions of the volumetric data were created by the technologist. Postcontrast sequences included coronal LAVA-flex and time course of axial T1-weighted LAVA. COMPARISON: Abdomen ultrasound 07/11/2025 FINDINGS: ABDOMEN MRI: Breast implants are noted. The liver, gallbladder, pancreas, and left adrenal gland are normal. There is a 10 mm mass in right adrenal gland containing microscopic fat, consistent with an adenoma. There are gallstones in the gallbladder, which is contracted. The kidneys are normal. There are no dilated loops of bowel. There are no pathologically enlarged lymph nodes. There is no free intraperitoneal fluid. ABDOMEN MRCP: The common duct is normal and measures 5 mm. No choledocholithiasis. IMPRESSION: 1. Cholelithiasis. No evidence of acute cholecystitis. Reviewed, dictated and finalized at location E.
--- OUTSIDE RECORDS SUMMARY | 2025-08-30 10:07 | XMS_ITS | Clinical Summary ---
Author Organization [facility] Address [address] [place] [address] Phone Care Team Providers Care Sleeping Car Service Attendant Name Role Phone Jesse Ramey MD Unavailable [phone] Linda Barrientos MD Unavailable [phone] Eufemia Garcia Primary Care Pr ovider Allergies [...] on file Legal Sex Female 9:12 PM [employer] Gender Identity Not on file Sexual Orientation Not on file Obstetrics History Last Filed Vital Signs Vital Sign Reading Time Taken Comments Blood Pressure 104/70 10/18/2024 10:29 AM [employer] Pulse 77 10/18/2024 10:29 AM [employer] Temperature 36.9 C (98.4 F) 10/18/2024 10:29 AM [employer] Respiratory Rate 18 10/18/2024 10:29 AM [employer] Oxygen Saturation 99% 10/18/2024 10:29 AM [employer] Inhaled Oxygen Concentration - - Weight 69.4 kg (153 lb) 10/18/2024 10:29 AM [employer] Height 162.6 cm (5' 4) 10/18/2024 10:29 AM [employer] Body Mass Index 26.26 10/18/2024 10:29 AM [employer] Plan of Treatment Health Maintenance Due Date [...] patient's age to complete this topic Insurance [employer] [place] [employer] [place] Care Teams Sleeping Car Service Attendant Relationship Specialty Start Date End Date Eufemia Garcia PA [address] [place] [address] PCP - General Physician Coal Feeder Operator 12/17/23 Jesse Ramey MD [address] [facility] [address], [place] [address] 08/05/22 Linda Barrientos MD [address] [place] [address] Referring Physician Gynecology 03/21/23
--- OUTSIDE RECORDS SUMMARY | 2025-08-30 10:07 | XMS_ITS | Data Portability ---
Author Organization [facility] Address [address] [place] [address] Care Team Providers Care Steam Plant Operator Name Role Phone EUFEMIA MARIE Primary Care Provider Unavailab le Assessment Encounter Date Assessment Date Assessment LastModified by Organization Details LastModified Time 08/06/2025 08/06/2025 mammogram is UTD 2024. [facility]. [email or web address] Not available 08/06/2025 10:33:10 Plan of Treatment Reminders Order Date Submit Date Provider Last Modified By Organization Details Last Modified Time Details Appointments ANY 15 2025 09:15A M SHIREEN Diaz Not available Not available Not available Lab lipid panel, serum 2024 025 [facility], [address], [place], [address], 08/30/2025 06:16:04 CBC w/ auto diff 2024 025 [facility], [address], [place], [address], 08/30/2025 06:16:05 CMP, serum or plasma 2024 025 [facility], [address], [place], [address], 08/30/2025 06:16:05 vitamin B12 + folate, serum or blood 2024 025 [facility], [address], [place], [address], 08/30/2025 06:16:06 HbA1c (hemoglob in A1c), blood 2024 025 [facility], [address], [place], [address], 08/30/2025 06:16:06 TSH + free T4, serum 2024 025 [facility], [address], [place], [address], 08/30/2025 06:16:04 CBC w/ auto diff 2023 024 [email or web address] [facility], [address], [place], [address], 06/12/2024 15:38:07 CMP, serum or plasma 2023 024 [email or web address] [facility], [address], [place], [address], 06/12/2024 15:38:07 vitamin B12 + folate, serum or blood 2023 024 [email or web address] [facility], [address], [place], [address], 06/12/2024 15:38:07 lipid panel, serum 2023 024 [email or web address] [facility], [address], [place], [address], 06/12/2024 15:38:07 HbA1c (hemoglob in A1c), blood 2023 024 [email or web address] [facility], [address], [place], [address], 06/12/2024 15:38:08 TSH + free T4, serum 2023 024 [facility], [address], [place], [address], 06/12/2024 11:42:03 Referral physical therapist referral 2023 024 [email or web address], [address], [address], [place], [address], 09/02/2024 15:24:20 Procedures colonosco py screening (PROC) 2024 025 [facility], [address], [place], [address], 08/07/2025 17:10:05 Surgeries None recorded. Imaging MR, cholangio pancreato gram, w/wo contrast 2024 025 [facility], [address] [place], [address], 08/25/2025 09:30:57 XR, shoulder, 2 or more view 2023 024 [facility], [facility], [place], [address], 05/28/2024 16:44:17 Medication Orders Wegovy 2.4 mg/0.75 mL subcutane ous pen injector 2023 024 [facility] [address] [facility], [address], [place], [address], 05/22/2024 12:17:36 Patient TargetsNo targets recorded. Patient InstructionsNo instructions recorded. Reason for Referral Physical Therapist Referral for Bilateral shoulder joint pain Referring Physician: Eufemia Marie, Internal Medicine, Encounter Date: 05/22/2024 Results Created Date Observation Date Name Description Value Unit Range Abnormal Flag Note LastModifiedBy Organization Detail LastModifiedTime 05/28/20 24 05/28/2024 XR, shoul jose manuel, 2 or more view No observ ation record ed. [facility]ANT[facility] [address], [place], [address], 06/06/2024 17:42:31 07/13/20 25 07/11/2025 US, abdom en No observ ation record ed. [facility] [address], [place], [address], 07/14/2025 16:55:12 Result Notes None recorded. Problems Name Problem SNOMED Code Status Onset Date Resolution Date Notes Provider Name and Address Organization Details Recorded Time Hypothyroidism 73562630 Active 2023 Deonna Rodrigues clarence, [place] - [place] 4 10:17:52 Body mass index 20-24 - normal 539436096 Active 2023 SHIREEN Diaz Attn: Godwin hernandez,[address] [facility], [place], [address], [facility] - [place] 4 13:14:37 Overweight in adulthood with body mass index of 25 or more but less than 30 642227592 Active 2024 SHIREEN Diaz Attn: Godwin g,[address] [facility], [place], [address], [facility] - [place] 5 16:56:35 Gallstone 629131380 Active 2024 SHIREEN Diaz Attn: Godwin g,[address] [facility], [place], [address], [facility] - [place] 5 16:57:31 Cholangiectasi s 953421370 Active 2024 SHIREEN Diaz Attn: Godwin g,[address] [facility], [place], [address], [facility] - [place] 5 16:57:43 Problem Notes None recorded. Procedures Surgical History Date Name Laterality Status Provider Name and Address Organization Details Recorded Time 3 Breast Surgery completed Shazia Clements [place] 05/22/2024 12:42:43 section completed Shazia Clements [place] [facility] 05/22/2024 12:42:51 D & c after delivery completed Shazia Clements MA [facility] 05/22/2024 12:42:57 Imaging Results None recorded. Procedure Notes None recorded. Medical Equipment None Reported. Allergies Allergen ID Allergen Name Allergen Category Reaction Reaction Severity Criticality Documentation Date Start Date Code Code System Note Provider Name and Address Organization Details Recorded Time doxycycli ne Not available itching Not available Not available 08/06/2025 3640 RxNorm Shazia Clements [place] null, [place] - [facility] 10:11:13 No known drug allergies Medications Name Sig Start Date Stop Date Status Note LastModified by Organization Details LastModified Time azithromyci n 250 mg tablet TAKE 2 TABLETS BY MOUTH TODAY, THEN TAKE 1 TABLET DAILY FOR 4 DAYS 01/29 completed Not Available Not Available Not Available Synthroid 100 mcg tablet Take 1 tablet every day by oral route for 90 days. active Not Available Not Available No t Available penicillin V potassium 500 mg tablet TAKE 1 TABLET BY MOUTH TWICE A DAY FOR 10 DAYS 01/29 completed Not Available Not Available Not Available phentermine 37.5 mg tablet TAKE 1 TABLET EVERY DAY BY ORAL ROUTE IN THE MORNING. 01/29 completed Not Available Not Available Not Available ofloxacin 0.3 % ear drops ADMINISTE R 5 DROPS INTO THE RIGHT EAR DAILY FOR 5 DAYS 08/06 completed Not Available Not Available Not Available famotidine 20 mg tablet Take 1 tablet every day by oral route for 30 days. active Not Available Not Available No t Available amoxicillin 875 mg-potassiu m clavulanate 125 mg tablet TAKE 1 TABLET BY MOUTH TWICE A DAY FOR 7 DAYS 08/06 completed Not Available Not Available Not Available bupropion HCl XL 300 mg 24 hr tablet, extended release Take 1 tablet every day by oral route for 90 days. active Not Available Not Available No t Available Wegovy 2.4 mg/0.75 mL subcutaneou s pen injector INJECT 1 PEN UNDER THE SKIN ONCE A WEEK active Not Available Not Available No t Available Wegovy 1.7 mg/0.75 mL subcutaneou s pen injector INJECT 1.7 MG SUBCUTANE OUSLY ONE TIME PER WEEK 08/06 completed Not Available Not Available Not Available Wegovy 1 mg/0.5 mL subcutaneou s pen injector INJECT 1 MG SUBCUTANE OUSLY WEEKLY DIRECTED 01/29 completed Not Available Not Available Not Available Vitals Date Recorded Body height Body mass index (BMI) Body weight Respiratory rate Oxygen saturation Oxygen saturation in Arterial blood by Pulse oximetry Heart rate Systolic And Diastolic Provider Name and Address Organization Details Last Updated DateTime 4 162.56 cm 24.3 kg/m2 33991.3 2 g 18 /min 100 % 100 % 87 /min 126/78 mm[Hg] Shazia Clements MA [facility] 4 11:39:34 Date Recorded Systolic And Diastolic Provider Name and Address Organization Details Last Updated DateTime 08/06/2025 110/80 mm[Hg] SHIREEN Diaz Attn: Accounting,[address] [place], [address], [facility] 08/06/2025 10:46:14 Date Recorded Body height Body mass index (BMI) Body weight Oxygen saturation Oxygen saturation in Arterial blood by Pulse oximetry Heart rate Systolic And Diastolic Provider Name and Address Organization Details Last Updated DateTime 5 162.56 cm 27.8 kg/m2 08834.9 6 g 98 % 98 % 71 /min 122/80 mm[Hg] Shazia Clements MA [facility] 5 10:13:43 Social History Question Answer Notes LastModified by Organizat ion Details LastModified Time Tobacco Smoking Status Former Smoker quit 2004 Shazia Clements MA null, [facility] 05/22/2024 11:36:15 Do You Have An Advance Directive? Yes Will Information not available 05/22/2024 Are You Blind Or Do You Have Difficulty Seeing? No Information not available 05/22/2024 What Is Your Level Of Caffeine Consumption? Moderate Information not available 05/22/2024 In The 14 Days Before Symptom Onset, Have You Had Close Contact With A Laboratory-confir med COVID-19 While That Case Was Ill? No Information not available 03/26/2024 In The 14 Days Before Symptom Onset, Have You Had Close Contact With A Person Who Is Under Investigation For COVID-19 While That Person Was Ill? No Information not available 03/26/2024 Have You Been To An Area Known To Be High Risk For COVID-19? No Information not available 03/26/2024 Are You Deaf Or Do You Have Serious Difficulty Hearing? No Information not available 05/22/2024 What Type Of Diet Are You Following? REGULAR Information not available 05/22/2024 Are There Any Guns Present In Your Home? No Information not available 05/22/2024 What Was The Date Of Your Most Recent Tobacco Screening? 08/06/2025 Information not available 08/06/2025 What Is Your Current Pack Years? 10-19pamaurice rs Information not available 05/22/2024 Do You Use Your Seat Belt Or Car Seat Routinely? Yes Information not available 03/26/2024 Do You Have Smoke And Carbon Monoxide Detectors In Your Home? Yes Information not available 03/26/2024 How Much Tobacco Do You Smoke? No Information not available 05/22/2024 Do You Use Sunscreen Routinely? Yes Information not available 05/22/2024 Has Tobacco Cessation Counseling Been Provided? Yes Information not available 03/26/2024 On What Date Was Tobacco Cessation Counseling Provided? 08/06/2025 Information not available 08/06/2025 Sex: Female Functional Status Question Answer Note LastModified by Organizat ion Details LastModified Time Do you use any illicit or recreational drugs? No Information not available 05/22/2024 Do you or have you ever used any other forms of tobacco or nicotine? No Information not available 08/06/2025 What is your level of alcohol consumption? Occasional Information not available 05/22/2024 Are you currently employed? Yes Information not available 05/22/2024 Are you able to care for yourself independently? Yes Information not available 03/26/2024 What is your occupation? Teacher Information not available 05/22/2024 What is your exercise level? Occasional Information not available 05/22/2024 Mental Status None recorded. Family History Nothing Reported. Medical History Condition Response Coronary Artery Disease N Other N High Blood Pressure N Atrial Fibrillation N Kidney or Bladder Problems N Thyroid Problems Y GI Problems N Depression N COPD N Blood Clots N Skin Problems N Anemia N Heart Attack ([place]) N Anxiety Disorder N Diabetes N Muscle, Joint, or Bone Problems N Seizures/Epilepsy N Acid Reflux (GERD) N Cancer Y Stroke N Asthma N Allergies N High Cholesterol N Hepatitis N Liver Disease N Headaches N Osteoporosis N Heart Failure N Gynecological History Statement/Question Response Flow Moderate Date of LMP 07/28/2025 Frequency of Cycle (Q days) 29 Menses Monthly Y Duration of Flow (days) 5 Current Control Method None LMP Approximate Obstetrics History GPAL:G 3 P 2 0 0 2 Type Value Full Term 2 Induced 0 Spontaneous 0 Premature 0 Living 2 Total 3 Immunizations Vaccine Type Date Status Note Provider Nam e and Address Organization Details Recorded Time Tdap 08/09/2023 completed Not Available [facility] 08/06/2025 10:01:19 Past Encounters Encounter ID Performer Location Encounter Start Date Encounter Closed Date Diagnosis/Indication Diagnosis SNOMED-CT Code Diagnosis ICD10 Code Diagnosis IMO Codes Diagnosis Note [id number] Erich Perdomo MD [facility] [place] [address] [place] [address] 05/22/2024 11:28:01 05/22/2024 12:22:50 Body mass index 20-24 - normal 297786080 Z68.24 bmi 24, excellent results on weight loss with wegovy and maintenanc e dosing. Bilateral shoulder joint pain 0635470524 8821217 M25.511 M25.512 refer for baseline xrays and refer for P.T. eval and tx Long-term drug therapy 048073774 Z79.899 cmp, cbc and b12, folate labs are due Hypothyroidism 57592596 E03.9 stable on thyroid supplement . due for TFT panel. Renewal of prescription 171778359 Z76.0 refill on wegovy Cholesterol screening 27 6958577 Z13.220 fasting lipids due Diabetes m ellitus screening 374369428 Z13.1 a1c screening due Adult heal th examination 900937637 Z00.01 annual exam completed. labs ordered. [id number] Erich Perdomo MD [facility] [place] [address] [place] [address] 08/06/2025 09:59:20 08/06/2025 11:08:09 Overweight in adulthood with body mass index of 25 or more but less than 30 875576736 E66.3 Z68.27 7746007216 BMI 27.8 Adult heal th examination 771253033 Z00.01 annual exam completed. labs ordered. Hypothyroidism 13078338 E03.9 stable on thyroid supplement . due for TFT panel. I have suggested that she stay on name brand Synthroid instead of changing to generic for more consistenc y in dosing Long-term drug therapy 068229808 Z79.899 cmp, cbc and b12, folate labs are due Cholesterol screening 27 6238484 Z13.220 fasting lipids due Diabetes m ellitus screening 978221445 Z13.1 a1c screening due Cholangiectasis 28859682 [id number] scan findings from this summer on her July 11 ultrasound in the emergency room. There is a very mild common bile duct dilatation that may have been from a gallstone. We really need to evaluate further with an MRCP to see if there is any stone remaining in the duct. If there is she will be referred to GI for an ERCP Screening for malignant neoplasm of colon 842439611 Z12.11 118456 Patient opts for baseline colonoscop y screening at the age of 44 order placed Gallstone 613969323 K80. 20 792064 Noted after ER visit July 11 for acute abdominal pain Health Concerns Section Related Observation LastModified by Organization Detai ls LastModified Time None Recorded Concern Status LastModified by Organization Details LastModified Time None Recorded Advance Directives Directive Y: will Payers Insurance Date Sequence Insurance Name Policy Number Policy [employer] Covered Member ID [employer] Member ID Guarantor Name 08/12/2025 1 [place] [id number] Syd Doll [id number] Manjeet Doll 05/22/2024 1 [place] [id number] Syd Doll [id number] Filomena Doll Notes Date Note Type Note Provider Name and Address Organization Details Recorded Time 05/22/2024 text/html ThyroidReported by Patientpt is stable on thyroid supplement. she is due for labs. ShoulderReported by PatientHPIFor hand dominance, patient reportsright. For location, patient reportsbilateral. For quality, patient reportsachinganddeep. For severity, patient reportsmoderate. For alleviating factors, patient reportsnothing helps. For aggravating factors, patient reportsliftingandpush ing/pulling. For associated symptoms, patient reportsno weakness,no numbness, andno tingling. For previous surgery, patient reportsnone. For prior imaging, patient reportsnone. For previous injections, patient reportsnone. For previous pt, patient reportsnone. For work related, patient reportsno. For working, patient reportsno.Pt. states that she has been having right/left shoulder pain states that it has been going on since september, states that she did try Hot heating pad/ states that she did try ibuprofen but nothing has seemed to help. States that she notices more at night when she is trying to sleep, as well as after exercise. She states long walks trigger shoulder pain. over the head movements are painful, slow and limited. she is not lifting weights because it hurts. Here for wellness exam. SHIREEN Diaz Attn: Accounting,[address] [facility], [place], [address], [facility] 05/25/2024 13:15:52 08/06/2025 text/html ThyroidReported by Patientpt is stable on thyroid supplement. she is due for labs. Here for wellness exam. She continues Wegovy maintenance dosing and is stable with her weight.She also has been on bupropion XL 300 mg and is doing wellPatient takes famotidine 20 mg [id number] daily and is stable with any mild acid reflux. SHIREEN Diaz Attn: Accounting[address] [facility], [place], [address], [facility] 08/07/2025 16:58:17 OBGyn Episode No OBEpisode recorded.
--- OUTSIDE RECORDS SUMMARY | 2025-08-30 10:07 | XMS_ITS | Clinical Summary ---
Author Organization [facility] Address [address] [place] [address] Care Team Providers Care Audio/Video Engineer Name Role Phone Erich Ocasio DO Primary Care Provider Source Comments [facility],non-owned Affiliates and Associated Physician Practices is amultiple site organization consisting of ambulatory clinics and hospital sitesin [place], [place], [place] and [place]. This disclosure is being madepursuant to the Care Everywhere program and may not contain all information available regarding this patient. Last updated 18.[facility] Allergies No known active allergies Medications * [...] not specified,Dysfu nction of both eustachian tubes [place] 2 sprays into each nostril once daily [...] on file Legal Sex Female 1:53 PM [employer] Gender Identity Not on file Sexual Orientation [...] VACCINE (1 - 3-dose SCDM series) 2006 DEPRESSION SCREENING 11/27/2024 COVID-19 VACCINE (1 - 2023-2 5 season) 2025 INFLUENZA VACCINE (#1) 2025 ZOSTER VACCINE (1 [...] patient's age to complete this topic Insurance [facility] Care Teams Audio/Video Engineer Relationship Specialty Start Date End Date Erich Ocasio DO [address] [place] [id number] PCP - General Internal Medicine 10/10/17
--- OUTSIDE RECORDS SUMMARY | 2025-08-30 10:07 | XMS_ITS | Data Portability ---
Author Organization [place] [facility], Main Office Address [address] [place] [address] Assessment No assessment recorded. Plan of Treatment Reminders Order Date Submit Date Provider Last Modified By Organization Details Last Modified Time Details Appointments None recorded. Lab lipid panel, serum 2022 023 [email or web address] [facility], [address], [place], [address], 3 14:36:28 CBC w/ auto diff 2022 023 [email or web address] [facility], [address], [place], [address], 3 14:36:27 CMP, serum or plasma 2022 023 [email or web address] [facility], [address], [place], [address], 3 14:36:27 HbA1c (hemoglobin A1c), blood 2022 023 [email or web address] [facility], [address], [place], [address], 3 14:36:28 TSH + free T4, serum 2022 023 [email or web address] [facility], [address], [place], [address], 3 14:36:27 Referral None recorded. Procedures None recorded. Surgeries None recorded. Imaging None recorded. Medication Orders Wegovy 1 mg/0.5 mL subcutaneou s pen injector 2022 023 [email or web address] [facility] [id number] In [facility], [address], [place], [address], 3 15:47:09 Patient TargetsNo targets recorded. Patient InstructionsNo instructions recorded. Reason for Referral None Reported. Results Created Date Observation Date Name Description Value Unit Range Abnormal Flag Note LastModifiedBy Organization Detail LastModifiedTime 06/30/2007/01/2021 VITAM IN B12/F OLATE , SERUM PANEL vitamin B12 543 pg/mL 200-11 00 normal Not Available [address], [address], 07/01/2021 04:23:34 06/30/2007/01/2021 VITAM IN B12/F OLATE , SERUM PANEL folate, serum 16.5 NG/mL normal Refer ence Range Low: <3.4 Borde rline : 3.4-5 .4 Valerie l: >5.4 Not Available [address], [address], 07/01/2021 04:23:34 06/30/20 21 07/01/2021 REFLE XIVE URINE CULTU RE reflexive urine culture NO CULTU RE INDIC ATED Not Available [address], [address], 07/01/2021 04:23:34 06/30/20 21 07/01/2021 URINA LYSIS , COMPL ETE W/REF KAROL TO CULTU RE color yellow yellow normal Not Available [address], [address], 07/01/2021 04:23:33 06/30/20 21 07/01/2021 URINA LYSIS , COMPL ETE W/REF KAROL TO CULTU RE appearance clear clear normal Not Available [address], [address], 07/01/2021 04:23:33 06/30/2007/01/2021 URINA LYSIS , COMPL ETE W/REF KAROL TO CULTU RE specific gravity 1.013 1.001- 1.035 normal Not Available [address], [address], 07/01/2021 04:23:33 06/30/20 21 07/01/2021 URINA LYSIS , COMPL ETE W/REF KAROL TO CULTU RE pH 8.0 5.0-8. 0 normal Not Available [address], [address], 07/01/2021 04:23:33 06/30/20 21 07/01/2021 URINA LYSIS , COMPL ETE W/REF KAROL TO CULTU RE glucose negati ve negati ve normal Not Available [address], [address], 07/01/2021 04:23:33 06/30/2007/01/2021 URINA LYSIS , COMPL ETE W/REF KAROL TO CULTU RE bilirubin negati ve negati ve normal Not Available [address], [address], 07/01/2021 04:23:33 06/30/20 21 07/01/2021 URINA LYSIS , COMPL ETE W/REF KAROL TO CULTU RE ketones negati ve negati ve normal Not Available [address], [address], 07/01/2021 04:23:33 06/30/2007/01/2021 URINA LYSIS , COMPL ETE W/REF KAROL TO CULTU RE occult blood negati ve negati ve normal Not Available [address], [address], 07/01/2021 04:23:33 06/30/20 21 07/01/2021 URINA LYSIS , COMPL ETE W/REF KAROL TO CULTU RE protein negati ve negati ve normal Not Available [address], [address], 07/01/2021 04:23:33 06/30/20 21 07/01/2021 URINA LYSIS , COMPL ETE W/REF KAROL TO CULTU RE nitrite negati ve negati ve normal Not Available [address], [address], 07/01/2021 04:23:33 06/30/20 21 07/01/2021 URINA LYSIS , COMPL ETE W/REF KAROL TO CULTU RE leukocyte esterase negati ve negati ve normal Not Available [address], [address], 07/01/2021 04:23:33 06/30/20 21 07/01/2021 URINA LYSIS , COMPL ETE W/REF KAROL TO CULTU RE WBC none seen /hpf < or = 5 normal Not Available [address], [address], 07/01/2021 04:23:33 06/30/20 21 07/01/2021 URINA LYSIS , COMPL ETE W/REF KAROL TO CULTU RE RBC 0-2 /hpf < or = 2 normal Not Available [address], [address], 07/01/2021 04:23:33 06/30/20 21 07/01/2021 URINA LYSIS , COMPL ETE W/REF KAROL TO CULTU RE squamous epithelial cells none seen /hpf < or = 5 normal Not Available [address], [address], 07/01/2021 04:23:33 06/30/20 21 07/01/2021 URINA LYSIS , COMPL ETE W/REF KAROL TO CULTU RE bacteria none seen /hpf none seen normal Not Available [address], [address], 07/01/2021 04:23:33 06/30/20 21 07/01/2021 URINA LYSIS , COMPL ETE W/REF KAROL TO CULTU RE hyaline cast none seen /lpf none seen normal Not Available [address], [address], 07/01/2021 04:23:33 06/30/20 21 07/01/2021 CBC (INCL UDES DIFF/ PLT) white blood cell count 6.6 thous and/u L 3.8-10 .8 normal Not Available [address], [address], 07/01/2021 04:23:33 06/30/20 21 07/01/2021 CBC (INCL UDES DIFF/ PLT) red blood cell count 4.37 sola on/uL 3.80-5 .10 normal Not Available [address], [address], 07/01/2021 04:23:33 06/30/20 21 07/01/2021 CBC (INCL UDES DIFF/ PLT) hemoglobin 13.0 g/dL 11.7-1 5.5 normal Not Available [address], [address], 07/01/2021 04:23:33 06/30/20 21 07/01/2021 CBC (INCL UDES DIFF/ PLT) hematocrit 41.1 % 35.0-4 5.0 normal Not Available [address], [address], 07/01/2021 04:23:33 06/30/20 21 07/01/2021 CBC (INCL UDES DIFF/ PLT) MCV 94.1 fL 80.0-1 00.0 normal Not Available [address], [address], 07/01/2021 04:23:33 06/30/20 21 07/01/2021 CBC (INCL UDES DIFF/ PLT) MCH 29.7 pg 27.0-3 3.0 normal Not Available [address], [address], 07/01/2021 04:23:33 06/30/20 21 07/01/2021 CBC (INCL UDES DIFF/ PLT) MCHC 31.6 g/dL 32.0-3 6.0 low Not Available [address], [address], 07/01/2021 04:23:33 06/30/20 21 07/01/2021 CBC (INCL UDES DIFF/ PLT) RDW 12.3 % 11.0-1 5.0 normal Not Available [address], [address], 07/01/2021 04:23:33 06/30/20 21 07/01/2021 CBC (INCL UDES DIFF/ PLT) platelet count 362 thous and/u L 140-40 0 normal Not Available [address], [address], 07/01/2021 04:23:33 06/30/20 21 07/01/2021 CBC (INCL UDES DIFF/ PLT) MPV 10.3 fL 7.5-12 .5 normal Not Available [address], [address], 07/01/2021 04:23:33 06/30/20 21 07/01/2021 CBC (INCL UDES DIFF/ PLT) absolute neutrophils 3953 cells /uL 1500-7 800 normal Not Available [address], [address], 07/01/2021 04:23:33 06/30/20 21 07/01/2021 CBC (INCL UDES DIFF/ PLT) absolute lymphocytes 1993 cells /uL 850-39 00 normal Not Available [address], [address], 07/01/2021 04:23:33 06/30/20 21 07/01/2021 CBC (INCL UDES DIFF/ PLT) absolute monocytes 422 cells /uL 200-95 0 normal Not Available [address], [address], 07/01/2021 04:23:33 06/30/20 21 07/01/2021 CBC (INCL UDES DIFF/ PLT) absolute eosinophils 178 cells /uL 15-500 normal Not Available [address], [address], 07/01/2021 04:23:33 06/30/20 21 07/01/2021 CBC (INCL UDES DIFF/ PLT) absolute basophils 53 cells /uL 0-200 normal Not Available [facility] [address], [address], 07/01/2021 04:23:33 06/30/20 21 07/01/2021 CBC (INCL UDES DIFF/ PLT) neutrophils 59.9 % normal Not Available [address], [address], 07/01/2021 04:23:33 06/30/20 21 07/01/2021 CBC (INCL UDES DIFF/ PLT) lymphocytes 30.2 % normal Not Available [facility] [address], [address], 07/01/2021 04:23:33 06/30/20 21 07/01/2021 CBC (INCL UDES DIFF/ PLT) monocytes 6.4 % normal Not Available [facility] [address], [address], 07/01/2021 04:23:33 06/30/20 21 07/01/2021 CBC (INCL UDES DIFF/ PLT) eosinophils 2.7 % normal Not Available [address], [address], 07/01/2021 04:23:33 06/30/20 21 07/01/2021 CBC (INCL UDES DIFF/ PLT) basophils 0.8 % normal Not Available [address], [address], 07/01/2021 04:23:33 06/30/20 21 07/01/2021 HEMOG LOBIN A1C hemoglobin A1C 5.2 %_of_ total _HGB <5.7 normal Not Available [address], [address], 07/01/2021 04:23:32 06/30/20 21 07/01/2021 COMPR EHENS SHAQ METAB OLIC PANEL glucose 86 mg/dL 65-99 normal Fasti ng refer ence inter lennie Not Available [address], [address], 07/01/2021 04:23:32 06/30/20 21 07/01/2021 COMPR EHENS SHAQ METAB OLIC PANEL urea nitrogen (BUN) 13 mg/dL 7-25 normal Not Available [address], [address], 07/01/2021 04:23:32 06/30/20 21 07/01/2021 COMPR EHENS SHAQ METAB OLIC PANEL creatinine 0.85 mg/dL 0.50-1 .10 normal Not Available [address], [address], 07/01/2021 04:23:32 06/30/20 21 07/01/2021 COMPR EHENS SHAQ METAB OLIC PANEL eGFR non-afr. north korean 85 mL/mi n/1.7 3m2 > or = 60 normal Not Available [address], [address], 07/01/2021 04:23:32 06/30/20 21 07/01/2021 COMPR EHENS SHAQ METAB OLIC PANEL eGFR 99 mL/mi n/1.7 3m2 > or = 60 normal Not Available [address], [address], 07/01/2021 04:23:32 06/30/20 21 07/01/2021 COMPR EHENS SHAQ METAB OLIC PANEL BUN/creatini ne ratio not applic able (calc ) 6-22 Not Available [address], [address], 07/01/2021 04:23:32 06/30/20 21 07/01/2021 COMPR EHENS SHAQ METAB OLIC PANEL sodium 139 mmol/ L 135-14 6 normal Not Available [address], [address], 07/01/2021 04:23:32 06/30/20 21 07/01/2021 COMPR EHENS SHAQ METAB OLIC PANEL potassium 4.5 mmol/ L 3.5-5. 3 normal Not Available [address], [address], 07/01/2021 04:23:32 06/30/20 21 07/01/2021 COMPR EHENS SHAQ METAB OLIC PANEL chloride 104 mmol/ L 98-110 normal Not Available [address], [address], 07/01/2021 04:23:32 06/30/20 21 07/01/2021 COMPR EHENS SHAQ METAB OLIC PANEL carbon dioxide 28 mmol/ L 20-32 normal Not Available [address], [address], 07/01/2021 04:23:32 06/30/20 21 07/01/2021 COMPR EHENS SHAQ METAB OLIC PANEL calcium 9.7 mg/dL 8.6-10 .2 normal Not Available [address], [address], 07/01/2021 04:23:32 06/30/20 21 07/01/2021 COMPR EHENS SHAQ METAB OLIC PANEL protein, total 7.1 g/dL 6.1-8. 1 normal Not Available [address], [address], 07/01/2021 04:23:32 06/30/20 21 07/01/2021 COMPR EHENS SHAQ METAB OLIC PANEL albumin 4.5 g/dL 3.6-5. 1 normal Not Available [address], [address], 07/01/2021 04:23:32 06/30/20 21 07/01/2021 COMPR EHENS SHAQ METAB OLIC PANEL globulin 2.6 g/dL_ (calc ) 1.9-3. 7 normal Not Available [address], [address], 07/01/2021 04:23:32 06/30/20 21 07/01/2021 COMPR EHENS SHAQ METAB OLIC PANEL albumin/glob ulin ratio 1.7 (calc ) 1.0-2. 5 normal Not Available [address], [address], 07/01/2021 04:23:32 06/30/20 21 07/01/2021 COMPR EHENS SHAQ METAB OLIC PANEL bilirubin, total 1.1 mg/dL 0.2-1. 2 normal Not Available [address], [address], 07/01/2021 04:23:32 06/30/20 21 07/01/2021 COMPR EHENS SHAQ METAB OLIC PANEL alkaline phosphatase 64 U/L 31-125 normal Not Available [address] [address] [place], [address], 07/01/2021 04:23:32 06/30/20 21 07/01/2021 COMPR EHENS SHAQ METAB OLIC PANEL AST 18 U/L 10-30 normal Not Available [address], [address], 07/01/2021 04:23:32 06/30/20 21 07/01/2021 COMPR EHENS SHAQ METAB OLIC PANEL ALT 21 U/L 6-29 normal Not Available [address], [address], 07/01/2021 04:23:32 06/30/20 21 07/01/2021 LIPID PANEL WITH RATIO S cholesterol, total 185 mg/dL <200 normal Not Available [address], [address], 07/01/2021 04:23:31 06/30/20 21 07/01/2021 LIPID PANEL WITH RATIO S HDL cholesterol 82 mg/dL > or = 50 normal Not Available [address], [address], 07/01/2021 04:23:31 06/30/20 21 07/01/2021 LIPID PANEL WITH RATIO S triglyceride s 99 mg/dL <150 normal Not Available [address], [address], 07/01/2021 04:23:31 06/30/20 21 07/01/2021 LIPID PANEL WITH RATIO S LDL-choleste rol 84 mg/dL _(abram c) normal Refer ence range : <100 Tiburcio able range <100 mg/dL for prima ry preve ntion ; <70 mg/dL for patie nts with CHD or diabe tic patie nts with > or = 2 CHD risk facto rs. LDL-C is now calcu lated using the Mandy n-Hop kins calcu latio n, which is a valid ated novel metho d provi ding jose r accur acy than the Fried magdalena changat ion in the estim ation of LDL-C . Mandy rob SS et al. VERONA. 2013; 310(1 9): 2061- 2068 (http ://ed ucati on.Qu estDi datSharethroughs. com/f aq/FA Q164) Not Available [facility] [address], [address], 07/01/2021 04:23:31 06/30/20 21 07/01/2021 LIPID PANEL WITH RATIO S chol/HDLC ratio 2.3 (calc ) <5.0 normal Not Available [address], [address], 07/01/2021 04:23:31 06/30/2007/01/2021 LIPID PANEL WITH RATIO S LDL/HDL ratio 1.0 (calc ) Below avera ge Risk: <2.34 [place] ge Risk: 2.35- 4.12 Moder ate Risk: 4.13- 5.56 High Risk: >5.57 Not Available [address], [address], 07/01/2021 04:23:31 06/30/2007/01/2021 LIPID PANEL WITH RATIO S non HDL cholesterol 103 mg/dL _(abram c) <130 normal For patie nts with diabe lemuel plus 1 major ASCVD risk facto r, treat ing to a non-H DL-C goal of <100 mg/dL (LDL- C of <70 mg/dL ) is consi maycold a thervesta pedavida c optio n. Not Available [address], [address], 07/01/2021 04:23:31 06/30/20 21 07/01/2021 TSH+F REE T4 TSH 1.27 mIU/L normal Refer ence Range > or = 20 Years 0.40- 4.50 Pregn keara Range s First trime ster 0.26- 2.66 Secon d trime ster 0.55- 2.73 Third trime ster 0.43- 2.91 Not Available [address], [address], 07/01/2021 04:23:31 06/30/20 21 07/01/2021 TSH+F REE T4 T4, free 1.3 NG/dL 0.8-1. 8 normal Not Available [address], [address], 07/01/2021 04:23:31 02/24/20 22 02/24/2022 T3, FREE T3, free 2.7 pg/mL 2.3-4. 2 normal Not Available [address], [address], 02/24/2022 04:14:44 02/24/20 22 02/24/2022 TSH+F REE T4 TSH 1.86 mIU/L normal Refer ence Range > or = 20 Years 0.40- 4.50 Pregn keara Range s First trime ster 0.26- 2.66 Secon d trime ster 0.55- 2.73 Third trime ster 0.43- 2.91 Not Available [address], [address], 02/24/2022 04:14:43 02/24/20 22 02/24/2022 TSH+F REE T4 T4, free 1.2 NG/dL 0.8-1. 8 normal Not Available [address], [address], 02/24/2022 04:14:43 09/28/20 22 09/30/2022 EXTRA SPECI MEN extra tube received An extra speci men was recei mina with no test reque sted. The speci men will be maint ained in stora ge in case addit ional testi ng is needcolin Pride e call the chance re[facility] rosanna yonnyaxel . Not Available [address], [address], 09/30/2022 02:53:20 09/28/20 22 09/30/2022 EXTRA SPECI MEN specimen type received urine Not Available [address], [address], 09/30/2022 02:53:20 09/28/20 22 09/30/2022 VITAM IN B12/F OLATE , SERUM PANEL vitamin B12 425 pg/mL 200-11 00 normal Not Available [address], [address], 09/30/2022 02:53:19 09/28/20 22 09/30/2022 VITAM IN B12/F OLATE , SERUM PANEL folate, serum 22.9 NG/mL normal Refer ence Range Low: <3.4 Borde rline : 3.4-5 .4 Valerie l: >5.4 Not Available [address], [address], 09/30/2022 02:53:19 09/28/20 22 09/30/2022 REFLE XIVE URINE CULTU RE reflexive urine culture NO CULTU RE INDIC ATED Not Available [address], [address], 09/30/2022 02:53:19 09/28/20 22 09/30/2022 URINA LYSIS , COMPL ETE W/REF KAROL TO CULTU RE color yellow yellow normal Not Available [address], [address], 09/30/2022 02:53:18 09/28/20 22 09/30/2022 URINA LYSIS , COMPL ETE W/REF KAROL TO CULTU RE appearance clear clear normal Not Available [address], [address], 09/30/2022 02:53:18 09/28/20 22 09/30/2022 URINA LYSIS , COMPL ETE W/REF KAROL TO CULTU RE specific gravity 1.015 1.001- 1.035 normal Not Available [address], [address], 09/30/2022 02:53:18 09/28/20 22 09/30/2022 URINA LYSIS , COMPL ETE W/REF KAROL TO CULTU RE pH 6.5 5.0-8. 0 normal Not Available [address], [address], 09/30/2022 02:53:18 09/28/20 22 09/30/2022 URINA LYSIS , COMPL ETE W/REF KAROL TO CULTU RE glucose negati ve negati ve normal Not Available [address], [address], 09/30/2022 02:53:18 09/28/20 22 09/30/2022 URINA LYSIS , COMPL ETE W/REF KAROL TO CULTU RE bilirubin negati ve negati ve normal Not Available [address], [address], 09/30/2022 02:53:18 09/28/20 22 09/30/2022 URINA LYSIS , COMPL ETE W/REF KAROL TO CULTU RE ketones negati ve negati ve normal Not Available [address], [address], 09/30/2022 02:53:18 09/28/20 22 09/30/2022 URINA LYSIS , COMPL ETE W/REF KAROL TO CULTU RE occult blood negati ve negati ve normal Not Available [address], [address], 09/30/2022 02:53:18 09/28/20 22 09/30/2022 URINA LYSIS , COMPL ETE W/REF KAROL TO CULTU RE protein negati ve negati ve normal Not Available [address], [address], 09/30/2022 02:53:18 09/28/20 22 09/30/2022 URINA LYSIS , COMPL ETE W/REF KAROL TO CULTU RE nitrite negati ve negati ve normal Not Available [address], [address], 09/30/2022 02:53:18 09/28/20 22 09/30/2022 URINA LYSIS , COMPL ETE W/REF KAROL TO CULTU RE leukocyte esterase negati ve negati ve normal Not Available [address], [address], 09/30/2022 02:53:18 09/28/20 22 09/30/2022 URINA LYSIS , COMPL ETE W/REF KAROL TO CULTU RE WBC 0-5 /hpf < or = 5 normal Not Available [address], [address], 09/30/2022 02:53:18 09/28/20 22 09/30/2022 URINA LYSIS , COMPL ETE W/REF KAROL TO CULTU RE RBC 0-2 /hpf < or = 2 normal Not Available [address], [address], 09/30/2022 02:53:18 09/28/20 22 09/30/2022 URINA LYSIS , COMPL ETE W/REF KAROL TO CULTU RE squamous epithelial cells 0-5 /hpf < or = 5 Not Available [address], [address], 09/30/2022 02:53:18 09/28/20 22 09/30/2022 URINA LYSIS , COMPL ETE W/REF KAROL TO CULTU RE bacteria few /hpf none seen abnormal Not Available [facility] [address] [address], [place], [address], 09/30/2022 02:53:18 09/28/20 22 09/30/2022 URINA LYSIS , COMPL ETE W/REF KAROL TO CULTU RE hyaline cast none seen /lpf none seen normal Not Available [address], [address], 09/30/2022 02:53:18 09/28/20 22 09/30/2022 URINA LYSIS , COMPL ETE W/REF KAROL TO CULTU RE comments few mucous thread s Not Available [address], [address], 09/30/2022 02:53:18 09/28/20 22 09/30/2022 CBC (INCL UDES DIFF/ PLT) white blood cell count 7.3 thous and/u L 3.8-10 .8 normal Not Available [address], [address], 09/30/2022 02:53:18 09/28/20 22 09/30/2022 CBC (INCL UDES DIFF/ PLT) red blood cell count 4.06 sola on/uL 3.80-5 .10 normal Not Available [address], [address], 09/30/2022 02:53:18 09/28/20 22 09/30/2022 CBC (INCL UDES DIFF/ PLT) hemoglobin 12.3 g/dL 11.7-1 5.5 normal Not Available [address], [address], 09/30/2022 02:53:18 09/28/20 22 09/30/2022 CBC (INCL UDES DIFF/ PLT) hematocrit 37.1 % 35.0-4 5.0 normal Not Available [address], [address], 09/30/2022 02:53:18 09/28/20 22 09/30/2022 CBC (INCL UDES DIFF/ PLT) MCV 91.4 fL 80.0-1 00.0 normal Not Available [address], [address], 09/30/2022 02:53:18 09/28/20 22 09/30/2022 CBC (INCL UDES DIFF/ PLT) MCH 30.3 pg 27.0-3 3.0 normal Not Available [address], [address], 09/30/2022 02:53:18 09/28/20 22 09/30/2022 CBC (INCL UDES DIFF/ PLT) MCHC 33.2 g/dL 32.0-3 6.0 normal Not Available [address], [address], 09/30/2022 02:53:18 09/28/20 22 09/30/2022 CBC (INCL UDES DIFF/ PLT) RDW 12.4 % 11.0-1 5.0 normal Not Available [address], [address], 09/30/2022 02:53:18 09/28/20 22 09/30/2022 CBC (INCL UDES DIFF/ PLT) platelet count 300 thous and/u L 140-40 0 normal Not Available [address], [address], 09/30/2022 02:53:18 09/28/20 22 09/30/2022 CBC (INCL UDES DIFF/ PLT) MPV 11.2 fL 7.5-12 .5 normal Not Available [address], [address], 09/30/2022 02:53:18 09/28/20 22 09/30/2022 CBC (INCL UDES DIFF/ PLT) absolute neutrophils 4475 cells /uL 1500-7 800 normal Not Available [address], [address], 09/30/2022 02:53:18 09/28/20 22 09/30/2022 CBC (INCL UDES DIFF/ PLT) absolute lymphocytes 2124 cells /uL 850-39 00 normal Not Available [address], [address], 09/30/2022 02:53:18 09/28/20 22 09/30/2022 CBC (INCL UDES DIFF/ PLT) absolute monocytes 460 cells /uL 200-95 0 normal Not Available [address], [address], 09/30/2022 02:53:18 09/28/20 22 09/30/2022 CBC (INCL UDES DIFF/ PLT) absolute eosinophils 183 cells /uL 15-500 normal Not Available [address], [address], 09/30/2022 02:53:18 09/28/20 22 09/30/2022 CBC (INCL UDES DIFF/ PLT) absolute basophils 58 cells /uL 0-200 normal Not Available [address], [address], 09/30/2022 02:53:18 09/28/20 22 09/30/2022 CBC (INCL UDES DIFF/ PLT) neutrophils 61.3 % normal Not Available [address], [address], 09/30/2022 02:53:18 09/28/20 22 09/30/2022 CBC (INCL UDES DIFF/ PLT) lymphocytes 29.1 % normal Not Available [address], [address], 09/30/2022 02:53:18 09/28/20 22 09/30/2022 CBC (INCL UDES DIFF/ PLT) monocytes 6.3 % normal Not Available [address], [address], 09/30/2022 02:53:18 09/28/20 22 09/30/2022 CBC (INCL UDES DIFF/ PLT) eosinophils 2.5 % normal Not Available [address], [address], 09/30/2022 02:53:18 09/28/20 22 09/30/2022 CBC (INCL UDES DIFF/ PLT) basophils 0.8 % normal Not Available [address], [address], 09/30/2022 02:53:18 09/28/20 22 09/30/2022 T3, FREE T3, free 2.9 pg/mL 2.3-4. 2 normal Not Available [address], [address], 09/30/2022 02:53:17 09/28/20 22 09/30/2022 MAGNE SIUM magnesium 2.1 mg/dL 1.5-2. 5 normal Not Available [address], [address], 09/30/2022 02:53:16 09/28/20 22 09/30/2022 HEMOG LOBIN A1C hemoglobin A1C 5.4 %_of_ total _HGB <5.7 normal For the purpo se of scree kevin for the prese nce of diabe lemuel: <5.7% Consi stent with the absen ce of diabe lemuel 5.7-6 .4% Consi stent with incre ased risk for diabe lemuel (pred iabet es) > or =6.5% Consi stent with diabe lemuel This assay resul t is consi stent with a decre ased risk of diabe lemuel. Curre ntly, no conse nsus exist s regar ding use of hemog lobin A1c for diagn osis of diabe lemuel in child eber. Accor ding to Ameri can Diabe lemuel Assoc iatio n (ADA) guide lines , hemog lobin A1c <7.0% repre sents optim al contr ol in non-p regna nt diabe tic patie nts. Diffe rent metri cs may apply to speci fic patie nt popul ation s. [facility] in Diabe lemuel(A DA). Not Available [address] [address] [place], [address], 09/30/2022 02:53:16 09/28/20 22 09/30/2022 COMPR EHENS SHAQ METAB OLIC PANEL glucose 87 mg/dL 65-99 normal Fasti ng refer ence inter lennie Not Available [address] [address] [place], [address], 09/30/2022 02:53:15 09/28/20 22 09/30/2022 COMPR EHENS SHAQ METAB OLIC PANEL urea nitrogen (BUN) 17 mg/dL 7-25 normal Not Available [facility] [address] [address] [place], [address], 09/30/2022 02:53:15 09/28/20 22 09/30/2022 COMPR EHENS SHAQ METAB OLIC PANEL creatinine 0.87 mg/dL 0.50-0 .99 normal Not Available [address] [address] [place], [address], 09/30/2022 02:53:15 09/28/20 22 09/30/2022 COMPR EHENS SHAQ METAB OLIC PANEL eGFR 85 mL/mi n/1.7 3m2 > or = 60 normal The eGFR is based on the CKD-E PI 2020 equat ion. To calcu late the new eGFR from a previ ous Creat inine or Cysta tin C resul t, go to https :[email or web address] [email or web address] [email or web address] [email or web address] orosco s/ kdoqi /gfr% 5Fcal culat or Not Available [facility] [address], [address], 09/30/2022 02:53:15 09/28/20 22 09/30/2022 COMPR EHENS SHAQ METAB OLIC PANEL BUN/creatini ne ratio not applic able (calc ) 6-22 Not Available [address], [address], 09/30/2022 02:53:15 09/28/20 22 09/30/2022 COMPR EHENS SHAQ METAB OLIC PANEL sodium 138 mmol/ L 135-14 6 normal Not Available [address], [address], 09/30/2022 02:53:15 09/28/20 22 09/30/2022 COMPR EHENS SHAQ METAB OLIC PANEL potassium 4.6 mmol/ L 3.5-5. 3 normal Not Available [address], [address], 09/30/2022 02:53:15 09/28/20 22 09/30/2022 COMPR EHENS SHAQ METAB OLIC PANEL chloride 104 mmol/ L 98-110 normal Not Available [address], [address], 09/30/2022 02:53:15 09/28/20 22 09/30/2022 COMPR EHENS SHAQ METAB OLIC PANEL carbon dioxide 33 mmol/ L 20-32 high Not Available [address], [address], 09/30/2022 02:53:15 09/28/20 22 09/30/2022 COMPR EHENS SHAQ METAB OLIC PANEL calcium 9.6 mg/dL 8.6-10 .2 normal Not Available [address], [address], 09/30/2022 02:53:15 09/28/20 22 09/30/2022 COMPR EHENS SHAQ METAB OLIC PANEL protein, total 6.8 g/dL 6.1-8. 1 normal Not Available [address], [address], 09/30/2022 02:53:15 09/28/20 22 09/30/2022 COMPR EHENS SHAQ METAB OLIC PANEL albumin 4.4 g/dL 3.6-5. 1 normal Not Available [address], [address], 09/30/2022 02:53:15 09/28/20 22 09/30/2022 COMPR EHENS SHAQ METAB OLIC PANEL globulin 2.4 g/dL_ (calc ) 1.9-3. 7 normal Not Available [address], [address], 09/30/2022 02:53:15 09/28/20 22 09/30/2022 COMPR EHENS SHAQ METAB OLIC PANEL albumin/glob ulin ratio 1.8 (calc ) 1.0-2. 5 normal Not Available [address], [address], 09/30/2022 02:53:15 09/28/20 22 09/30/2022 COMPR EHENS SHAQ METAB OLIC PANEL bilirubin, total 0.8 mg/dL 0.2-1. 2 normal Not Available [address], [address], 09/30/2022 02:53:15 09/28/20 22 09/30/2022 COMPR EHENS SHAQ METAB OLIC PANEL alkaline phosphatase 66 U/L 31-125 normal Not Available [facility] [address], [address], 09/30/2022 02:53:15 09/28/20 22 09/30/2022 COMPR EHENS SHAQ METAB OLIC PANEL AST 15 U/L 10-30 normal Not Available [address] [place], [address], 09/30/2022 02:53:15 09/28/20 22 09/30/2022 COMPR EHENS SHAQ METAB OLIC PANEL ALT 17 U/L 6-29 normal Not Available [address] [address] [place], [address], 09/30/2022 02:53:15 09/28/20 22 09/30/2022 LIPID PANEL WITH RATIO S cholesterol, total 177 mg/dL <200 normal Not Available [address] [place] [address] [place], [address], 09/30/2022 02:53:15 09/28/20 22 09/30/2022 LIPID PANEL WITH RATIO S HDL cholesterol 72 mg/dL > or = 50 normal Not Available [address], [address], 09/30/2022 02:53:15 09/28/20 22 09/30/2022 LIPID PANEL WITH RATIO S triglyceride s 107 mg/dL <150 normal Not Available [address], [address], 09/30/2022 02:53:15 09/28/20 22 09/30/2022 LIPID PANEL WITH RATIO S LDL-choleste rol 85 mg/dL _(abram c) normal Refer ence range : <100 Tiburcio able range <100 mg/dL for prima ry preve ntion ; <70 mg/dL for patie nts with CHD or diabe tic patie nts with > or = 2 CHD risk facto rs. LDL-C is now calcu lated using the Mandy rob-Hop frankie villarreal n, which is a valid ated novel rc sanchez than the Fried magdalena equat ion in the estim ation of LDL-C . Mandy rob SS et al. VERONA. 2013; 310(1 9): 2061- 2068 (http ://ed ucati on.Qu estDi Autifony Therapeuticsos tics. com/f aq/FA Q164) Not Available [place] [address] [place], [address], 09/30/2022 02:53:15 09/28/20 22 09/30/2022 LIPID PANEL WITH RATIO S chol/HDLC ratio 2.5 (calc ) <5.0 normal Not Available [address] [address] [place], [address], 09/30/2022 02:53:15 09/28/20 22 09/30/2022 LIPID PANEL WITH RATIO S LDL/HDL ratio 1.2 (calc ) Below avera ge Risk: <2.34 [place] ge Risk: 2.35- 4.12 Moder ate Risk: 4.13- 5.56 High Risk: >5.57 Not Available [address] [address] [place], [address], 09/30/2022 02:53:15 09/28/20 22 09/30/2022 LIPID PANEL WITH RATIO S non HDL cholesterol 105 mg/dL _(abram c) <130 normal For patie nts with diabe lemuel plus 1 major ASCVD risk facto r, treat ing to a non-H DL-C goal of <100 mg/dL (LDL- C of <70 mg/dL ) is consi jak talamantes c optio n. Not Available [place] [address] [address] [place], [address], 09/30/2022 02:53:15 09/28/20 22 09/30/2022 TSH+F REE T4 TSH 1.31 mIU/L normal Refer ence Range > or = 20 Years 0.40- 4.50 Pregn keara Range s First trime ster 0.26- 2.66 Secon d trime ster 0.55- 2.73 Third trime ster 0.43- 2.91 Not Available [address] [address] [place], [address], 09/30/2022 02:53:14 09/28/20 22 09/30/2022 TSH+F REE T4 T4, free 1.3 NG/dL 0.8-1. 8 normal Not Available [facility] [address] [facility] [address] [place], [address], 09/30/2022 02:53:14 09/12/20 22 09/12/2022 MAMMO , diagn ostic , digit al, unila teral No observ ation record ed. [id number] [facility] [address], [place], [address], 01/25/2023 20:22:05 Result Notes None recorded. Problems Name Problem SNOMED Code Status Onset Date Resolution Date Notes Provider Name and Address Organization Details Recorded Time Hypothyroi dism 52679853 Active 2018 Not Available [facility] 3 12:45:25 Depressive disorder 43260712 Active 2021 Not Available [facility] 3 12:45:25 Right lateral elbow tendinopat hy 1380266285381 07 Active 2021 Not Available [facility] 3 12:45:25 Paresthesi a of upper limb 38793042 Active 2021 Not Available [facility] 3 12:45:25 Weight loss 77861165 Active 2022 Not Available [facility] 3 12:45:25 Problem Notes None recorded. Procedures Surgical History Date Name Laterality Status Provider Name and Address Organization Details Recorded Time completed Not Available [facility] 0 01/25/2023 20:19:31 extraction of wisdom tooth completed Not Available [facility] 01/25/2023 20:19:31 Dilation and curettage completed Not Available [facility] 01/25/2023 20:19:31 augmentation mammoplasty completed Not Available [facility] 01/25/2023 20:19:31 completed Not Available [facility] 0 01/25/2023 20:19:31 Imaging Results None recorded. Procedure Notes None recorded. Medical Equipment None Reported. Allergies Allergen ID Allergen Name Allergen Category Reaction Reaction Severity Criticality Documentation Date Start Date Code Code System Note Provider Name and Address Organization Details Recorded Time 74204 doxycycli ne Not available itching Not available Not available 01/25/2023 3640 RxNorm Not Available [facility] 3 20:22:02 Medications Name Sig Start Date Stop Date Status Note LastModified by Organization Details LastModified Time amoxicillin 500 mg capsule 12/21 completed Not Available Not Available Not Available [place] Thyroid 90 mg tablet 04/11 completed Not Available Not Available Not Available azithromyci n 250 mg tablet TAKE 2 TABLETS BY MOUTH TODAY, THEN TAKE 1 TABLET DAILY FOR 4 DAYS 04/11 completed Not Available Not Available Not Available Synthroid 125 mcg tablet TAKE 1 TABLET BY MOUTH EVERY DAY IN THE MORNING active Not Available Not Available No t Available Synthroid 100 mcg tablet TAKE 1 TABLET EVERY DAY BY MOUTH IN THE MORNING. active Not Available Not Available No t Available phentermine 15 mg capsule TAKE 1 CAPSULE BY MOUTH TWICE DAILY BEFORE MEALS FOR 30 DAYS 06/18 completed Not Available Not Available Not Available phentermine 37.5 mg tablet TAKE 1 TABLET EVERY DAY BY ORAL ROUTE IN THE MORNING. 04/12 completed Not Available Not Available Not Available ciprofloxac in 500 mg tablet Take 1 tablet every 12 hours by oral route as directed. 06/18 completed Not Available Not Available Not Available Lice Treatment (permethrin ) 1 % topical liquid APPLY A SUFFICIEN T AMOUNT OF SHAMPOO BY TOPICAL ROUTE ONCE ALLOW TO REMAIN ON HAIR FOR 10 MINUTES BEFORE RINSING OFF WITH WATER 06/18 completed Not Available Not Available Not Available doxycycline monohydrate 100 mg capsule TAKE ONE CAPSULE BY MOUTH TWICE A DAY FOR 10 DAYS 08/22 completed Not Available Not Available Not Available cephalexin 500 mg capsule TAKE ONE CAPSULE BY MOUTH TWICE A DAY FOR 5 DAYS 08/22 completed Not Available Not Available Not Available oseltamivir 75 mg capsule 12/21 completed Not Available Not Available Not Available methylpredn isolone 4 mg tablets in a dose pack TAKE 6 TABLETS ON DAY 1 DIRECTED ON PACKAGE AND DECREASE BY 1 TAB EACH DAY FOR A TOTAL OF 6 DAYS 04/19 completed Not Available Not Available Not Available fluticasone propionate 50 mcg/actuati on nasal spray,suspe nsion 12/07 completed Not Available Not Available Not Available amoxicillin 875 mg-potassiu m clavulanate 125 mg tablet TAKE 1 TABLET BY MOUTH EVERY 12 HOURS 04/19 completed Not Available Not Available Not Available bupropion HCl XL 300 mg 24 hr tablet, extended release TAKE 1 TABLET BY MOUTH DAILY active Not Available Not Available No t Available bupropion HCl XL 150 mg 24 hr tablet, extended release Take 1 tablet every day by oral route for 90 days. active Not Available Not Available No t Available B Complex daily 04/01 completed Not Available Not Available Not Available multivitami n 2021 active Not Available Not Available Not Avai lable Tirosint 125 mcg capsule Take 1 capsule every day by oral route in the morning for 30 days. 06/18 completed Not Available Not Available Not Available Nature-Thro id 97.5 mg tablet TK 1 T PO QD 04/11 completed Not Available Not Available Not Available Nature-Thro id 113.75 mg tablet Take 1 tablet every day by oral route. 06/18 completed Not Available Not Available Not Available Wegovy 1.7 mg/0.75 mL subcutaneou s pen injector INJECT 1.7 MG EVERY WEEK BY SUBCUTANE OUS ROUTE DIRECTED 2022 active Not Available Not Available Not Avai lable Wegovy 1 mg/0.5 mL subcutaneou s pen injector INJECT 1 MG SUBCUTANE OUSLY WEEKLY DIRECTED active Not Available Not Available No t Available Wegovy 0.25 mg/0.5 mL subcutaneou s pen injector Inject by subcutane ous route for 28 days. 12/27 completed Not Available Not Available Not Available Wegovy 0.5 mg/0.5 mL subcutaneou s pen injector INJECT 0.5 MG EVERY WEEK BY SUBCUTANE OUS ROUTE DIRECTED. 04/11 completed Not Available Not Available Not Available Vitals Date Recorded Body mass index (BMI) Body height Oxygen saturation Oxygen saturation in Arterial blood by Pulse oximetry Heart rate Body temperature Body weight Systolic And Diastolic Provider Name and Address Organization Details Last Updated DateTime 3 30.9 kg/m2 162.56 cm 99 % 99 % 91 /min 97.4 [degF] 14790.6 3 g 112/72 mm[Hg] Not Available [facility] 3 20:19:54 Date Recorded Body mass index (BMI) Body height Oxygen saturation Oxygen saturation in Arterial blood by Pulse oximetry Heart rate Respiratory rate Body temperature Body weight Systolic And Diastolic Provider Name and Address Organization Details Last Updated DateTime 2 31.7 kg/m2 162.56 cm 99 % 99 % 84 /min 16 /min 96.6 [degF] 85088.1 5 g 120/80 mm[Hg] Not Available [facility] 3 20:19:54 Date Recorded Body height Body temperature Body mass index (BMI) Body weight Respiratory rate Oxygen saturation Oxygen saturation in Arterial blood by Pulse oximetry Heart rate Systolic And Diastolic Provider Name and Address Organization Details Last Updated DateTime 3 162.56 cm 96.5 [degF] 28.3 kg/m2 34846.7 4 g 16 /min 99 % 99 % 98 /min 120/80 mm[Hg] YAZMIN Berry [place] [facility] 3 10:14:17 Date Recorded Body mass index (BMI) Body height Oxygen saturation Oxygen saturation in Arterial blood by Pulse oximetry Heart rate Body weight Systolic And Diastolic Provider Name and Address Organization Details Last Updated DateTime 1 32 kg/m2 162.56 cm 97 % 97 % 80 /min 87004.6 2 g 120/80 mm[Hg] Not Available [facility] 3 20:19:53 Date Recorded Body height Oxygen saturation Oxygen saturation in Arterial blood by Pulse oximetry Heart rate Respiratory rate Body temperature Systolic And Diastolic Systolic And Diastolic Provider Name and Address Organization Details Last Updated DateTime 2 162.56 cm 98 % 98 % 74 /min 16 /min 97.3 [degF] 110/72 mm[Hg] 110/80 mm[Hg] Not Available [facility] 3 20:19:54 Social History Question Answer Notes LastModified by Organizat ion Details LastModified Time Tobacco Smoking Status Former Smoker Not Available [facility] 01/25/2023 20:19:17 Do You Have An Advance Directive? Yes [id number].[id number] 0656 Information not available 01/25/2023 Are You Blind Or Do You Have Difficulty Seeing? No MIGRATION.019454 6269 Information not available 01/25/2023 What Is Your Level Of Caffeine Consumption? Occasional MIGRATION.[id number] 1495 Information not available 01/25/2023 In The 14 Days Before Symptom Onset, Have You Had Close Contact With A Laboratory-confir med COVID-19 While That Case Was Ill? No MIGRATION.487131 1545 Information not available 01/25/2023 In The 14 Days Before Symptom Onset, Have You Had Close Contact With A Person Who Is Under Investigation For COVID-19 While That Person Was Ill? No MIGRATION.540222 4475 Information not available 01/25/2023 Are You Deaf Or Do You Have Serious Difficulty Hearing? No MIGRATION.059912 9345 Information not available 01/25/2023 What Type Of Diet Are You Following? REGULAR MIGRATION.889808 7916 Information not available 01/25/2023 Have There Been Any Changes To Your Family Or Social Situation? No MIGRATION.840876 4785 Information not available 01/25/2023 When Did You Quit Smoking? 6-10yearssince lastcigarette MIGRATION.895344 9869 Information not available 01/25/2023 Are There Any Guns Present In Your Home? No MIGRATION.225162 7490 Information not available 01/25/2023 Do You Use Insect Repellent Routinely? Yes MIGRATION.554983 9563 Information not available 01/25/2023 Have You Ever Been Counseled For Unhealthy Alcohol Use? No MIGRATION.215725 3080 Information not available 01/25/2023 What Is Your Relationship Status? MIGRATION.474181 7990 Information not available 01/25/2023 Do You Use Your Seat Belt Or Car Seat Routinely? Yes MIGRATION.781519 5014 Information not available 01/25/2023 Do You Have Smoke And Carbon Monoxide Detectors In Your Home? Yes MIGRATION.553933 7948 Information not available 01/25/2023 Are You Passively Exposed To Smoke? No MIGRATION.753133 5805 Information not available 01/25/2023 Are There Any Smokers In Your House? Yes MIGRATION.128245 6545 Information not available 01/25/2023 Do You Use Sunscreen Routinely? Yes MIGRATION.235175 5237 Information not available 01/25/2023 Has Tobacco Cessation Counseling Been Provided? No MIGRATION.447541 2999 Information not available 01/25/2023 How Many Years Have You Smoked Tobacco? 10 MIGRATION.964886 3900 Information not available 01/25/2023 Have You Recently Traveled Abroad? No MIGRATION.536864 1857 Information not available 01/25/2023 Do You Have Difficulty Walking Or Climbing Stairs? No MIGRATION.603467 8516 Information not available 01/25/2023 Do You Have Any Dietary Restrictions? No MIGRATION.984031 3644 Information not available 01/25/2023 Sex: Unknown Functional Status Question Answer Note LastModified by [employer] Details LastModified Time Do you use any illicit or recreational drugs? No MIGRATION.3827390 026 Information not available 01/25/2023 Do you or have you ever used any other forms of tobacco or nicotine? No MIGRATION.2758484 026 Information not available 01/25/2023 What is your level of alcohol consumption? Moderate MIGRATION.6543872 026 Information not available 01/25/2023 Do you have transportation difficulties? No MIGRATION.2274207 026 Information not available 01/25/2023 Are you able to walk independently without assistance or assistive devices? YESWOREST MIGRATION.5856102 026 Information not available 01/25/2023 Do you have difficulty doing errands alone? No MIGRATION.6514020 026 Information not available 01/25/2023 Are you able to care for yourself independently? Yes MIGRATION.4945367 026 Information not available 01/25/2023 Do you have difficulty dressing, bathing, grooming, or toileting? No MIGRATION.6629065 026 Information not available 01/25/2023 What is your exercise level? Occasional MIGRATION.1074835 026 Information not available 01/25/2023 Mental Status Question Answer Note LastModified by [employer] Ent[employer] Details LastModified Time Do you have difficulty concentrating, remembering or making decisions? No MIGRATION.[id number] 6 Information not available 01/25/2023 Family History Relationship Description Onset Age of this Age Resolved Age Notes LastModified by Organization Details LastModified Time Father General health good [id number] Not available 01/25/2023 20:19:32 Mother General health good [id number] Not available 01/25/2023 20:19:32 Medical History Condition Response HYPERTHYROIDISM Y Gynecological History Statement/Question Response Menses Monthly Y Abnormal Pap Y Date of Last Pap 12/23/2018 Date of Last Mammogram 05/27/2018 Current Control Method None Sexually Active? Y Obstetrics History GPAL:G 3 P 0 0 0 2 Type Value Living 2 Total 3 Immunizations Vaccine Type Date Status Note Provider Nam e and Address Organization Details Recorded Time Tdap 08/09/2023 completed YAZMIN Berry, [place] - [facility] [employer] [facility] 08/14/2023 16:12:15 Past Encounters Encounter ID Performer Location Encounter Start Date Encounter Closed Date Diagnosis/Indication Diagnosis SNOMED-CT Code Diagnosis ICD10 Code Diagnosis IMO Codes Diagnosis Note [id number] SHIREEN Diaz [facility] Internal Med [place] [address] [place] [address] 06/18/2021 00:00:00 06/26/2021 10:47:58 [id number] Erich Perdomo MD [facility] Internal Med [place] [address] [place] [address] 04/01/2022 00:00:00 04/26/2022 21:41:23 [id number] SHIREEN Diaz [facility] Internal Med [place] [address] [facility] [address] [place] [address] 08/22/2022 00:00:00 08/23/2022 21:40:36 [id number] SHIREEN Diaz [facility] Internal Med [place] [address] [facility] [address] [address] [facility] [address] [place] [address] 12/06/2022 00:00:00 12/26/2022 19:57:46 [id number] SHIREEN Diaz [facility] Internal Med [place] [address] [place] [address] 04/12/2023 10:09:36 04/12/2023 11:12:20 Adult health examination 100741972 Z00.01 well exam completed. annual labs ordered Hypothyroidism 11896240 E03.9 stable on supplement and due for labs Cholesterol screening 27 0049624 Z13.220 fasting lipids are due Diabetes m ellitus screening 138573198 Z13.1 screening for diabetes due Long-term drug therapy 785874454 Z79.899 routine CBC and CMP due Body mass index 25-29 - overweight 867804794 Z68.28 refill wegovy at 1mg weekly dose. Health Concerns Section Related Observation LastModified by Organization Detai ls LastModified Time None Recorded Concern Status LastModified by Organization Details LastModified Time None Recorded Advance Directives Directive Y: Payers Insurance Date Sequence Insurance Name Policy Number Policy [employer] Covered Member ID [employer] Member ID Guarantor Name 04/25/2023 1 [place] [id number] Syd Doll [id number] Filomena Doll Notes Date Note Type Note Provider Name and Address Organization Details Recorded Time 04/12/2023 text/html Generic HPI TemplateReported by PatientPt is here to f/u on the wegovy and have annual visit. She says it is helping and doing great on it. Good weight loss and feeling well overall. tolerating medication without issue. well exam SHIREEN Diaz [address] [facility] [facility] [address], [place], [address], [place] [facility] [employer] (acquired by [employer] in 2014) 04/24/2023 23:26:38 OBGyn Episode No OBEpisode recorded.
--- OUTSIDE RECORDS SUMMARY | 2025-08-30 10:07 | XMS_ITS | Clinical Summary ---
Author Organization [facility] Address [address] [address] Phone Care Team Providers Care Wildlife Conservationist Name Role Phone Unavailable Primary Care Provider [...] Done Comments Pre-Diabetes and Diabetes Screening 1979 HEPATITIS B VACCINES (1 of 3 - 19+ 3-dose series) 1998 HPV/Cotest (21-29) 2000 HPV VACCINES (1 - 3-dose SCDM series) 2006 CERVICAL CANCER SCREENING 2009 HPV/Cotest (30-65) 2009 [...] Region Laterality Modality Breast Bilateral Mammography 04/08/2025 9:0 0 AM CDT Impressions 04/08/2025 9:19 AM CDT IMPRESSION: No suspicious findings to suggest malignancy in either breast. Annual mammography is recommended. OVERALL FINAL ASSESSMENT: BI-RADS CATEGORY 2: Benign findings DICTATION LOCATION: [facility] 04/08/2025 9:19 AM CDT BILATERAL SCREENING [...] used in the interpretation of this examination. Mammography Self Referral Provider MD DONALDO MARTIN Final Result from Last 3 Months or Most Recently Relevant to Health Maintenance Insurance [facility] BLUE ACCESS/TRUE BLUE PPO
--- OUTSIDE RECORDS SUMMARY | 2025-08-30 10:07 | XMS_ITS | Patient Health Record ---
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
== END 2025-08-30 10:05 | disposition home or self-care (01) ==
LOC: CHSIMG 10:05
PROVIDERS: PCP Physician Assistant; Visit Provider Physician Assistant
DX: K83.8 Other specified diseases of biliary tract (principal); K80.20 Calculus of gallbladder without cholecystitis without obstruction
CPT/HCPCS: 74183; 76376; A9577

== ENCOUNTER 2025-10-09 08:46 | Outpatient (CLI) | payer BC, SELFPAY ==
--- NOTE | ~2025-10-09 | XR_ITS ---
EXAMINATION: XR scoliosis survey DATE: 10/09/2025 09:14 INDICATION: Scoliosis TECHNIQUE: Standing AP and lateral views of the entire spine were each obtained on 3 overlapping cranial to caudal images. COMPARISON: None. FINDINGS: Normal complement of 7 nonrib-bearing cervical, 12 paired rib bearing thoracic and 5 nonrib-bearing lumbar segments. There is likely developmental anterior and posterior fusion at C2-C3. Slight reversal of the normal cervical lordosis. Sagittal alignment is otherwise normal. Vertebral body heights are normal. 25 degrees thoracolumbar levoscoliosis measured between T11 and L2 with mild right-sided disc height loss at T12-L1 and L1-L2. 15 degrees thoracic dextroscoliosis measured between T3 and T11. The plumbline from the epicenter of T1 lies 1.3 cm to the left of the epicenter of S1. No significant pelvic tilt with the apex of the left femoral head line 1-2 mm cephalad to the apex of the right femoral head. Visualized portions of the lungs are clear. Lead breast shielding obscures portions of the lateral lower lung zones. Heart size normal. IMPRESSION: 1. Mild S-shaped scoliosis of the thoracic and lumbar spine. Reviewed, dictated and finalized at location A. ING MACHINE OPERATOR
--- OUTSIDE RECORDS SUMMARY | 2025-10-09 09:01 | XMS_ITS | Clinical Summary ---
Author Organization [facility] Address [address] [place] [address] Care Team Providers Care Surfboard Maker Name Role Phone Erich Ocasio DO Primary Care Provider Source Comments [facility],non-owned Affiliates and Associated Physician Practices is amultiple site organization consisting of ambulatory clinics and hospital sitesin [place], [place], [place] and [place]. This disclosure is being madepursuant to the Care Everywhere program and may not contain all information available regarding this patient. 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
--- OUTSIDE RECORDS SUMMARY | 2025-10-09 09:01 | XMS_ITS | Clinical Summary ---
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 Gender Identity Not on file Sexual Orientation Not on file Last Filed Vital Signs Vital Sign Reading Time Taken Comments Blood Pressure 104/70 10/18/2024 10:29 AM ONLINE MERCHANDISING SPECIALIST Pulse 77 10/18/2024 10:29 AM ONLINE MERCHANDISING SPECIALIST Temperature 36.9 C (98.4 F) 10/18/2024 10:29 AM ONLINE MERCHANDISING SPECIALIST Respiratory Rate 18 10/18/2024 10:29 AM ONLINE MERCHANDISING SPECIALIST Oxygen Saturation 99% 10/18/2024 10:29 AM ONLINE MERCHANDISING SPECIALIST Inhaled Oxygen Concentration - - Weight 69.4 kg (153 lb) 10/18/2024 10:29 AM ONLINE MERCHANDISING SPECIALIST Height 162.6 cm (5' 4) 10/18/2024 10:29 AM ONLINE MERCHANDISING SPECIALIST Body Mass Index 26.26 10/18/2024 10:29 AM ONLINE MERCHANDISING SPECIALIST Plan of Treatment Health Maintenance Due Date Last Done Comments Cervical Cancer Screening 1979 Colon Cancer Screening-Colonoscopy 1979 Depression Screening 1979 Hepatitis C Screening 1979 Hepatitis B Screening 1997 Regular Well Visit/Exam 18-64 1997 Breast Cancer Screening-Mammogram 03/22/2025 03/22/2024, 03/22/2024 Influenza Vaccine (#1) 2025 09/07/2015 DTaP/Tdap/Td Vaccine (2 - Td or Tdap) 08/09/2033 08/09/2023 HPV Vaccines Aged Out No longer eligi ble based on patient's age to complete this topic Pneumococcal vaccine <65 Aged Out No longer eligible based on patient's age to complete this topic Insurance [employer] [place] Care Teams Senior Technical Recruiter Relationship Specialty Start Date End Date Eufemia Garcia PA [address] [place] [address] PCP - General Physician Bean Sprout Grower 12/17/23 Jesse Ramey MD [address] [facility] [address], [place] [address] 08/05/22 Linda Barrientos MD [address] [place] [address] Referring Physician Gynecology 03/21/23
--- OUTSIDE RECORDS SUMMARY | 2025-10-09 09:01 | XMS_ITS | Patient Health Record ---
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
--- OUTSIDE RECORDS SUMMARY | 2025-10-09 09:01 | XMS_ITS | Clinical Summary ---
Author Organization [facility] Address [address] [facility] [place] [address] Phone Care Team Providers Care Treatment Technician Name Role Phone Unavailable Primary Care Provider Unavailabl e Allergies No known active allergies Medications No known medications Encounters Date Type Department Care Team Description 09/30/2025 External Device Data [facility] ABSTRACTION Provider, Abstract 09/24/2025 External Device Data [facility] ABSTRACTION Provider, Abstract 09/23/2025 External Device Data [facility] ABSTRACTION Provider, Abstract 09/23/2025 External Device Data [facility] ABSTRACTION Provider, Abstract 09/16/2025 External Device Data [facility] ABSTRACTION Provider, Abstract [...] - T d or Tdap) 08/09/2033 08/09/2023 HPV VACCINES Aged Out No longer eligi ble based on patient's age to complete this topic Procedures Procedure Name Priority Date/Time Associated Diagnosis [...] BI-RADS CATEGORY 2: Benign findings DICTATION LOCATION: [facility] 04/08/2025 9:19 AM CDT BILATERAL SCREENING DIGITAL [...] Most Recently Relevant to Health Maintenance Insurance [facility] BLUE ACCESS/TRUE BLUE PPO
== END 2025-10-09 08:47 | disposition home or self-care (01) ==
PROVIDERS: PCP Physician Assistant; Visit Provider Physician Assistant
DX: M41.9 Scoliosis, unspecified (principal)
CPT/HCPCS: 72082